=== PATIENT | female | born 1935 | race African-American/Black ===

== ENCOUNTER → 2016-07-16 | Outpatient (CLI) | payer MEDICARE, MEDICAID ==
[~2016-07-16] MED LIST: ASCO500C15 PO; AZOPT OP; BRIM.2 BOTHEYE; CHOL50006 PO; FAMO20TA8 PO; FERR-63 PO; FOLI1TAB63 PO; IPRA3AMP9 INH; SEVE800T8 PO; [UNRECOGNIZED DRUG - CODE] TOP
[2016-07-16 13:00] LABS: BASOPHILS % 0.8 % (0.0-2.0); HEMATOCRIT. 35.1 % (36.0-48.0); HEMOGLOBIN. 12.2 g/dL (12.0-16.0); LYMPHOCYTES % 31.9 % (20.0-50.0); MEAN CORPUSCULAR HEMOGLOBIN 28.4 pg (28.0-32.0); MEAN CORPUSCULAR HGB CONC 34.7 g/dL (31.0-37.0); MEAN CORPUSCULAR VOLUME 81.9 fL (81.0-99.0); MONOCYTES % 5.7 % (2.0-8.0); NEUTROPHILS % 57.6 % (40.0-76.0); PLATELET 246 x1000/uL (130-400); RED BLOOD CELL COUNT 4.29 mill/uL (4.2-5.4); RED CELL DISTRIBUTION WIDTH 14.3 % (11.6-14.6); WHITE BLOOD COUNT 10.4 x1000/uL (4.5-11.0)
[2016-07-16 13:21] LABS: ALANINE AMINOTRANSFERASE 16 IU/L (13-61); ALBUMIN 3.2 g/dL (3.4-5.0); ANION GAP 12; CALCIUM 8.9 mg/dL (8.5-10.1); CARBON DIOXIDE 26 mEq/L (21-32); CHLORIDE 108 mEq/L (98-107); HDL CHOLESTEROL 83 mg/dL (40-59); INDEX HEMOLYSI 1 (1-3); INDEX ICTERIC 1 (1-4); INDEX LIPEMIC 1 (1-3); TRIGLYCERIDE 214 mg/dL (0-150); UREA NITROGEN BLOOD 31 mg/dL (7-21); eGFR 35 mL/min (>60)
[2016-07-16 13:22] LABS: LDL CHOLESTEROL 227 mg/dL (5-100)
== END | disposition home or self-care (01) ==
LOC: LAB 12:27
PROVIDERS: ATTEND Internal Medicine Critical Care Medicine
DX: I12.0 Hypertensive chronic kidney disease with stage 5 chronic kidney disease or end stage renal disease (principal); N18.5 Chronic kidney disease, stage 5
CPT/HCPCS: 36415; 80053; 80061; 82306; 84443; 85025

== ENCOUNTER → 2016-12-13 | Outpatient (CLI) | payer MEDICARE, MEDICAID ==
[~2016-12-13] MED LIST changes: +DUONEB3 ML INH; -IPRA3AMP9 INH
[2016-12-13 16:38] LABS: BASOPHILS % 0.9 % (0.0-2.0); HEMOGLOBIN. 11.2 g/dL (12.0-16.0); LYMPHOCYTES % 35.4 % (20.0-50.0); MEAN CORPUSCULAR VOLUME 81.6 fL (81.0-99.0); MEAN PLATELET VOLUME 7.2 fl (7.4-10.4); MONOCYTES % 5.1 % (2.0-8.0); NEUTROPHILS % 54.6 % (40.0-76.0); PLATELET 243 x1000/uL (130-400); RED BLOOD CELL COUNT 4.17 mill/uL (4.2-5.4); RED CELL DISTRIBUTION WIDTH 14.4 % (11.6-14.6)
== END | disposition home or self-care (01) ==
LOC: LAB 15:53
PROVIDERS: ATTEND Internal Medicine Nephrology
DX: I12.9 Hypertensive chronic kidney disease with stage 1 through stage 4 chronic kidney disease, or unspecified chronic kidney disease (principal); N18.3 Chronic kidney disease, stage 3 (moderate)
CPT/HCPCS: 36415; 80048; 85025

== ENCOUNTER → 2017-03-28 | Outpatient (CLI) | payer MEDICARE, MEDICAID ==
[2017-03-28 13:11] LABS: EOSINOPHILS % 3.4 % (0.0-5.0); HEMATOCRIT. 32.5 % (36.0-48.0); HEMOGLOBIN. 10.8 g/dL (12.0-16.0); LYMPHOCYTES % 33.8 % (20.0-50.0); MEAN CORPUSCULAR HEMOGLOBIN 26.8 pg (28.0-32.0); MEAN CORPUSCULAR VOLUME 81.2 fL (81.0-99.0); MEAN PLATELET VOLUME 6.7 fl (7.4-10.4); MONOCYTES % 6.3 % (2.0-8.0); NEUTROPHILS % 55.5 % (40.0-76.0); PLATELET 246 x1000/uL (130-400); RED BLOOD CELL COUNT 4.01 mill/uL (4.2-5.4); RED CELL DISTRIBUTION WIDTH 14.7 % (11.6-14.6)
[2017-03-28 13:34] LABS: CLARITY URINE CLEAR (CLEAR); COLOR URINE YELLOW (YELLOW); KETONES URINE NEGATIVE (NEGATIVE); LEUKOCYTE ESTERASE URINE 2+ (NEGATIVE); NITRITE URINE NEGATIVE (NEGATIVE); OCCULT BLOOD URINE NEGATIVE (NEGATIVE); PH URINE 5.5 (4.5-8.0); PROTEIN URINE TRACE (NEGATIVE); SPECIFIC GRAVITY URINE 1.009 (1.005-1.030); UROBILINOGEN URINE 0.2 E.U./dL (0.2-1.0)
[2017-03-28 13:59] LABS: CHLORIDE 107 mEq/L (98-107)
== END | disposition home or self-care (01) ==
LOC: LAB 12:37
PROVIDERS: ATTEND Internal Medicine Nephrology
DX: N18.3 Chronic kidney disease, stage 3 (moderate) (principal)
CPT/HCPCS: 36415; 80053; 81001; 83036; 85025; 87077; 87086; 87186

== ENCOUNTER 2018-08-19 15:23 | Emergency (ER) | payer MEDICARE, MEDICAID ==
[~2018-08-19] VITALS: Ht 165.1 cm; Wt 113.0 kg
[2018-08-19] MEDS ORDERED: KETOROLAC 30MG/ML VIAL IV STA (16:11)
[2018-08-19 16:39] LABS: BASOPHILS % 1.1 % (0.0-2.0); EOSINOPHILS % 3.7 % (0.0-5.0); HEMATOCRIT. 31.3 % (36.0-48.0); HEMOGLOBIN. 10.6 g/dL (12.0-16.0); LYMPHOCYTES % 40.4 % (20.0-50.0); MEAN CORPUSCULAR HEMOGLOBIN 28.4 pg (28.0-32.0); MEAN CORPUSCULAR VOLUME 83.4 fL (81.0-99.0); MEAN PLATELET VOLUME 6.9 fl (7.4-10.4); MONOCYTES % 6.1 % (2.0-8.0); NEUTROPHILS % 48.7 % (40.0-76.0); PLATELET 211 x1000/uL (130-400); RED BLOOD CELL COUNT 3.75 mill/uL (4.2-5.4); RED CELL DISTRIBUTION WIDTH 15.3 % (11.6-14.6)
[2018-08-19 16:46] LABS: PROTHROMBIN TIME 9.9 sec (9.6-11.0)
[2018-08-19 16:49] LABS: CHLORIDE 109 mEq/L (98-107)
[2018-08-19 18:57] VITALS: BP 138/65
== END 2018-08-19 19:02 | disposition home or self-care (01) ==
LOC: ER 15:23
DX: M79.18 Myalgia, other site (principal); K43.9 Ventral hernia without obstruction or gangrene; M79.605 Pain in left leg; I11.9 Hypertensive heart disease without heart failure; Z89.511 Acquired absence of right leg below knee; Z79.899 Other long term (current) drug therapy; Z91.041 Radiographic dye allergy status
CPT/HCPCS: 36415; 73590; 74176; 80053; 83690; 85025; 85610; 93005; 93971; 96374; 99284; J1885

== ENCOUNTER 2019-02-17 23:58 | Inpatient (IN) | payer MEDICARE, MEDICAID ==
[~2019-02-17] VITALS: Ht 165.1 cm; Wt 96.3 kg
[2019-02-17 23:58] VITALS: BP 171/79
[~2019-02-17 23:58] MED LIST changes: +AMLO5TAB88 PO; +BENA10TA12 PO; +CARV3.1242 MT; +CITR15SO2 PO; -DUONEB3 ML INH; +FERR325T6 MT; +FOLI1TAB63 MT; +FURO-152 PO; +SEVE800T8 MT
[2019-02-18] VITALS: BP 171/74
[2019-02-18] MEDS ORDERED: LACTULOSE 20G/30ML UDC PO PRN (01:00)
[2019-02-18] MEDS ORDERED: GUAIFENESIN 200MG/10ML SUGAR FREE UDC PO PRN (01:00)
[2019-02-18] MEDS ORDERED: ONDANSETRON HCL 4MG/2ML INJ IV PRN (01:00)
[2019-02-18] MEDS ORDERED: CLONIDINE 0.1MG TABLET PO PRN (01:00)
[2019-02-18] MEDS: ACETAMINOPHEN 325MG TABLET PO PRN (01:58)
[2019-02-18] MEDS ORDERED: SODIUM CHLORIDE 0.9% 1,000 ML IV SCH (02:00)
[2019-02-18] MEDS ORDERED: MEROPENEM 500 MG in SODIUM CHLORIDE 0.9% 50 ML IV SCH (03:00)
[2019-02-18] MEDS: IPRATROPIUM/ALBUTEROL 0.5-3(2.5)MG/3ML NEB HHN SCH ×6 (03:28→20:00)
[2019-02-18 08:00] VITALS: BP 114/45
[2019-02-18] MEDS: FAMOTIDINE 20MG TABLET PO SCH (08:40)
[2019-02-18] MEDS: SEVELAMER CARBONATE 800 MG TABLET PO SCH ×3 (08:41→19:05)
[2019-02-18] MEDS: FERROUS SULFATE 325MG TABLET PO SCH ×2 (08:41→19:05)
[2019-02-18] MEDS: DOCUSATE SODIUM 250MG CAPSULE PO SCH (08:41)
[2019-02-18] MEDS: FOLIC ACID/VITAMIN B COMP W-C TABLET PO SCH (08:41)
[2019-02-18] MEDS: CITALOPRAM HYDROBROMIDE 10MG TABLET PO SCH (08:41)
[2019-02-18] MEDS: AMLODIPINE 5MG TABLET PO SCH ×2 (08:42→22:18)
[2019-02-18] MEDS: ENOXAPARIN 30MG/0.3ML SYR SUBCUT SCH (08:42)
[2019-02-18] MEDS: BRIMONIDINE 0.2% OPHTH DROPS 5ML BOTHEYE SCH ×2 (08:44→19:05)
[2019-02-18] MEDS ORDERED: BENAZEPRIL 10MG TABLET PO SCH (09:00)
[2019-02-18] MEDS ORDERED: FUROSEMIDE 20MG/2ML VIAL IVP SCH (09:00)
[2019-02-18] MEDS: BENAZEPRIL 10MG TABLET PO SCH (09:00)
[2019-02-18 12:51] LABS: BASOPHILS % 1.4 % (0.0-2.0); HEMATOCRIT. 30.9 % (36.0-48.0); HEMOGLOBIN. 10.2 g/dL (12.0-16.0); LYMPHOCYTES % 21.6 % (20.0-50.0); MEAN CORPUSCULAR HEMOGLOBIN 27.5 pg (28.0-32.0); MEAN CORPUSCULAR VOLUME 83.5 fL (81.0-99.0); MEAN PLATELET VOLUME 6.5 fl (7.4-10.4); MONOCYTES % 9.6 % (2.0-8.0); NEUTROPHILS % 64.4 % (40.0-76.0); PLATELET 272 x1000/uL (130-400); RED CELL DISTRIBUTION WIDTH 14.8 % (11.6-14.6)
[2019-02-18 20:00] VITALS: BP 148/57
[2019-02-18] MEDS: MEROPENEM 500 MG in SODIUM CHLORIDE 0.9% 50 ML IV SCH (21:53)
[2019-02-19] MEDS: IPRATROPIUM/ALBUTEROL 0.5-3(2.5)MG/3ML NEB HHN SCH ×6 (00:50→20:09)
[2019-02-19 08:00] VITALS: BP 143/62
[2019-02-19 08:01] LABS: BASOPHILS % 0.6 % (0.0-2.0); EOSINOPHILS % 3.7 % (0.0-5.0); HEMATOCRIT. 28.5 % (36.0-48.0); HEMOGLOBIN. 9.3 g/dL (12.0-16.0); LYMPHOCYTES % 28.6 % (20.0-50.0); MEAN CORPUSCULAR HEMOGLOBIN 27.4 pg (28.0-32.0); MEAN CORPUSCULAR VOLUME 83.7 fL (81.0-99.0); MEAN PLATELET VOLUME 6.5 fl (7.4-10.4); NEUTROPHILS % 56.1 % (40.0-76.0); PLATELET 262 x1000/uL (130-400); RED BLOOD CELL COUNT 3.41 mill/uL (4.2-5.4); RED CELL DISTRIBUTION WIDTH 14.5 % (11.6-14.6)
[2019-02-19] MEDS: BENAZEPRIL 10MG TABLET PO SCH (09:00)
[2019-02-19] MEDS: FERROUS SULFATE 325MG TABLET PO SCH ×2 (09:41→16:40)
[2019-02-19] MEDS: AMLODIPINE 5MG TABLET PO SCH ×2 (09:42→22:48)
[2019-02-19] MEDS: CITALOPRAM HYDROBROMIDE 10MG TABLET PO SCH (09:42)
[2019-02-19] MEDS: FAMOTIDINE 20MG TABLET PO SCH (09:43)
[2019-02-19] MEDS: FOLIC ACID/VITAMIN B COMP W-C TABLET PO SCH (09:43)
[2019-02-19] MEDS: ENOXAPARIN 30MG/0.3ML SYR SUBCUT SCH (09:43)
[2019-02-19] MEDS: SEVELAMER CARBONATE 800 MG TABLET PO SCH ×3 (09:43→16:40)
[2019-02-19] MEDS: DOCUSATE SODIUM 250MG CAPSULE PO SCH (09:43)
[2019-02-19] MEDS: BRIMONIDINE 0.2% OPHTH DROPS 5ML BOTHEYE SCH ×2 (09:44→16:41)
[2019-02-19] MEDS: ACETAMINOPHEN 325MG TABLET PO PRN (16:41)
[2019-02-19 20:00] VITALS: BP 171/78
[2019-02-20] MEDS: IPRATROPIUM/ALBUTEROL 0.5-3(2.5)MG/3ML NEB HHN SCH ×5 (00:09→22:23)
[2019-02-20 08:20] VITALS: BP 136/60
[2019-02-20] MEDS: CITALOPRAM HYDROBROMIDE 10MG TABLET PO SCH (08:40)
[2019-02-20] MEDS: BENAZEPRIL 10MG TABLET PO SCH ×2 (08:41→21:01)
[2019-02-20] MEDS: FOLIC ACID/VITAMIN B COMP W-C TABLET PO SCH (08:41)
[2019-02-20] MEDS: FERROUS SULFATE 325MG TABLET PO SCH ×2 (08:41→17:30)
[2019-02-20] MEDS: FAMOTIDINE 20MG TABLET PO SCH (08:41)
[2019-02-20] MEDS: DOCUSATE SODIUM 250MG CAPSULE PO SCH (08:41)
[2019-02-20] MEDS: SEVELAMER CARBONATE 800 MG TABLET PO SCH ×3 (08:41→17:30)
[2019-02-20] MEDS: ENOXAPARIN 30MG/0.3ML SYR SUBCUT SCH (08:42)
[2019-02-20] MEDS: AMLODIPINE 5MG TABLET PO SCH ×2 (08:42→21:00)
[2019-02-20] MEDS: BRIMONIDINE 0.2% OPHTH DROPS 5ML BOTHEYE SCH ×2 (08:42→17:30)
[2019-02-20] MEDS ORDERED: BENZONATATE 100MG CAPSULE PO PRN (09:30)
[2019-02-20] MEDS: ONDANSETRON HCL 4MG TABLET PO PRN (18:07)
[2019-02-20 20:00] VITALS: BP 127/57
[2019-02-20] MEDS: MEROPENEM 500 MG in SODIUM CHLORIDE 0.9% 50 ML IV SCH (23:02)
[2019-02-20] MEDS: LORAZEPAM 2MG/ML CPJ IV PRN (23:27)
[2019-02-21] MEDS: IPRATROPIUM/ALBUTEROL 0.5-3(2.5)MG/3ML NEB HHN SCH ×5 (00:34→20:59)
[2019-02-21 06:43] LABS: BASOPHILS % 1.1 % (0.0-2.0); EOSINOPHILS % 4.9 % (0.0-5.0); HEMATOCRIT. 27.2 % (36.0-48.0); HEMOGLOBIN. 9.1 g/dL (12.0-16.0); LYMPHOCYTES % 29.9 % (20.0-50.0); MEAN CORPUSCULAR HEMOGLOBIN 27.6 pg (28.0-32.0); MEAN CORPUSCULAR VOLUME 82.7 fL (81.0-99.0); MEAN PLATELET VOLUME 6.8 fl (7.4-10.4); MONOCYTES % 10.2 % (2.0-8.0); NEUTROPHILS % 53.9 % (40.0-76.0); PLATELET 198 x1000/uL (130-400); RED BLOOD CELL COUNT 3.29 mill/uL (4.2-5.4); RED CELL DISTRIBUTION WIDTH 14.5 % (11.6-14.6)
[2019-02-21 08:10] VITALS: BP 145/51
[2019-02-21] MEDS: AMLODIPINE 5MG TABLET PO SCH ×2 (08:50→20:50)
[2019-02-21] MEDS: FOLIC ACID/VITAMIN B COMP W-C TABLET PO SCH (08:50)
[2019-02-21] MEDS: FERROUS SULFATE 325MG TABLET PO SCH ×2 (08:50→16:10)
[2019-02-21] MEDS: SEVELAMER CARBONATE 800 MG TABLET PO SCH ×3 (08:50→16:10)
[2019-02-21] MEDS: BENAZEPRIL 10MG TABLET PO SCH ×2 (08:50→20:50)
[2019-02-21] MEDS: DOCUSATE SODIUM 250MG CAPSULE PO SCH (08:50)
[2019-02-21] MEDS: FAMOTIDINE 20MG TABLET PO SCH (08:50)
[2019-02-21] MEDS: CITALOPRAM HYDROBROMIDE 10MG TABLET PO SCH (08:51)
[2019-02-21] MEDS: ENOXAPARIN 30MG/0.3ML SYR SUBCUT SCH (08:56)
[2019-02-21] MEDS: BRIMONIDINE 0.2% OPHTH DROPS 5ML BOTHEYE SCH ×2 (08:58→16:11)
[2019-02-21 20:00] VITALS: BP 156/54
[2019-02-21] MEDS: MEROPENEM 500 MG in SODIUM CHLORIDE 0.9% 50 ML IV SCH (20:49)
[2019-02-22] MEDS: IPRATROPIUM/ALBUTEROL 0.5-3(2.5)MG/3ML NEB HHN SCH ×6 (01:10→21:14)
[2019-02-22 08:00] VITALS: BP 136/41
[2019-02-22] MEDS: FOLIC ACID/VITAMIN B COMP W-C TABLET PO SCH (08:31)
[2019-02-22] MEDS: SEVELAMER CARBONATE 800 MG TABLET PO SCH ×3 (08:31→16:06)
[2019-02-22] MEDS: CITALOPRAM HYDROBROMIDE 10MG TABLET PO SCH (08:31)
[2019-02-22] MEDS: DOCUSATE SODIUM 250MG CAPSULE PO SCH (08:31)
[2019-02-22] MEDS: AMLODIPINE 5MG TABLET PO SCH ×2 (08:31→21:51)
[2019-02-22] MEDS: FAMOTIDINE 20MG TABLET PO SCH (08:31)
[2019-02-22] MEDS: BRIMONIDINE 0.2% OPHTH DROPS 5ML BOTHEYE SCH ×2 (08:32→16:12)
[2019-02-22] MEDS: FERROUS SULFATE 325MG TABLET PO SCH ×2 (08:32→16:07)
[2019-02-22] MEDS: BENAZEPRIL 10MG TABLET PO SCH ×2 (08:32→21:52)
[2019-02-22] MEDS: ENOXAPARIN 30MG/0.3ML SYR SUBCUT SCH (08:33)
[2019-02-22 20:00] VITALS: BP 140/59
[2019-02-22] MEDS: MEROPENEM 500 MG in SODIUM CHLORIDE 0.9% 50 ML IV SCH (21:50)
[2019-02-22] MEDS: LORAZEPAM 2MG/ML CPJ IV PRN (23:57)
[2019-02-23] MEDS: IPRATROPIUM/ALBUTEROL 0.5-3(2.5)MG/3ML NEB HHN SCH ×6 (01:08→23:42)
[2019-02-23 07:47] LABS: BASOPHILS % 1.1 % (0.0-2.0); EOSINOPHILS % 3.3 % (0.0-5.0); HEMATOCRIT. 28.6 % (36.0-48.0); HEMOGLOBIN. 9.7 g/dL (12.0-16.0); LYMPHOCYTES % 23.3 % (20.0-50.0); MEAN CORPUSCULAR HEMOGLOBIN 28.1 pg (28.0-32.0); MEAN CORPUSCULAR VOLUME 83.2 fL (81.0-99.0); MEAN PLATELET VOLUME 7.2 fl (7.4-10.4); MONOCYTES % 10.4 % (2.0-8.0); NEUTROPHILS % 61.9 % (40.0-76.0); PLATELET 230 x1000/uL (130-400); RED BLOOD CELL COUNT 3.44 mill/uL (4.2-5.4); RED CELL DISTRIBUTION WIDTH 14.4 % (11.6-14.6)
[2019-02-23 08:12] VITALS: BP 143/56
[2019-02-23] MEDS: BENAZEPRIL 10MG TABLET PO SCH ×2 (09:01→21:00)
[2019-02-23] MEDS: CITALOPRAM HYDROBROMIDE 10MG TABLET PO SCH (09:01)
[2019-02-23] MEDS: DOCUSATE SODIUM 250MG CAPSULE PO SCH (09:01)
[2019-02-23] MEDS: SEVELAMER CARBONATE 800 MG TABLET PO SCH ×3 (09:01→16:21)
[2019-02-23] MEDS: AMLODIPINE 5MG TABLET PO SCH ×2 (09:01→21:10)
[2019-02-23] MEDS: FERROUS SULFATE 325MG TABLET PO SCH ×2 (09:01→16:21)
[2019-02-23] MEDS: BRIMONIDINE 0.2% OPHTH DROPS 5ML BOTHEYE SCH ×2 (09:02→16:21)
[2019-02-23] MEDS: FAMOTIDINE 20MG TABLET PO SCH (09:02)
[2019-02-23] MEDS: FOLIC ACID/VITAMIN B COMP W-C TABLET PO SCH (09:02)
[2019-02-23] MEDS: ENOXAPARIN 30MG/0.3ML SYR SUBCUT SCH (10:23)
[2019-02-23] MEDS: ONDANSETRON HCL 4MG TABLET PO PRN (10:52)
[2019-02-23] MEDS: POLYVINYL ALCOHOL OPHTH DROPS 15ML BOTHEYE SCH ×2 (12:13→17:07)
[2019-02-23] MEDS ORDERED: MIDAZOLAM HCL 2 MG/2 ML VIAL ONE (14:53)
[2019-02-23] MEDS ORDERED: PROPOFOL 200MG/20ML VIAL IV ONE (14:53)
[2019-02-23] MEDS ORDERED: FENTANYL CITRATE/PF 50MCG/ML 2ML VIAL ONE (14:53)
[2019-02-23] MEDS ORDERED: DEXAMETHASONE 4MG/ML 1ML VIAL ONE (15:06)
[2019-02-23] MEDS ORDERED: ONDANSETRON HCL 4MG/2ML INJ ONE (15:06)
[2019-02-23] MEDS ORDERED: ROCURONIUM BROMIDE 10MG/ML VIAL 5ML IV ONE ×2 (15:07→17:06)
[2019-02-23 20:00] VITALS: BP 114/65
[2019-02-23] MEDS: EPOETIN ALFA 4000UNITS/ML VIAL SUBCUT SCH (21:00)
[2019-02-23] MEDS: MEROPENEM 500 MG in SODIUM CHLORIDE 0.9% 50 ML IV SCH (21:09)
[2019-02-24] MEDS: BRIMONIDINE 0.2% OPHTH DROPS 5ML BOTHEYE SCH ×3 (01:00→16:31)
[2019-02-24] MEDS: POLYVINYL ALCOHOL OPHTH DROPS 15ML BOTHEYE SCH ×3 (01:02→16:31)
[2019-02-24 08:00] VITALS: BP 128/52
[2019-02-24] MEDS: DOCUSATE SODIUM 250MG CAPSULE PO SCH (08:49)
[2019-02-24] MEDS: AMLODIPINE 5MG TABLET PO SCH ×2 (08:49→21:07)
[2019-02-24] MEDS: FAMOTIDINE 20MG TABLET PO SCH (08:50)
[2019-02-24] MEDS: CITALOPRAM HYDROBROMIDE 10MG TABLET PO SCH (08:50)
[2019-02-24] MEDS: BENAZEPRIL 10MG TABLET PO SCH ×2 (08:50→21:07)
[2019-02-24] MEDS: ENOXAPARIN 30MG/0.3ML SYR SUBCUT SCH (08:50)
[2019-02-24] MEDS: FOLIC ACID/VITAMIN B COMP W-C TABLET PO SCH (08:50)
[2019-02-24] MEDS: SEVELAMER CARBONATE 800 MG TABLET PO SCH ×3 (08:50→16:28)
[2019-02-24] MEDS: FERROUS SULFATE 325MG TABLET PO SCH ×2 (08:50→16:28)
[2019-02-24] MEDS: FUROSEMIDE 40MG TABLET PO SCH (08:53)
[2019-02-24] MEDS: IPRATROPIUM/ALBUTEROL 0.5-3(2.5)MG/3ML NEB HHN SCH ×5 (09:15→23:50)
[2019-02-24 09:28] LABS: CHLORIDE 110 mEq/L (98-107)
[2019-02-24 11:21] LABS: BASOPHILS % 0.7 % (0.0-2.0); EOSINOPHILS % 3.2 % (0.0-5.0); HEMATOCRIT. 26.8 % (36.0-48.0); HEMOGLOBIN. 8.9 g/dL (12.0-16.0); LYMPHOCYTES % 25.3 % (20.0-50.0); MEAN CORPUSCULAR HEMOGLOBIN 27.6 pg (28.0-32.0); MEAN CORPUSCULAR VOLUME 83.6 fL (81.0-99.0); MEAN PLATELET VOLUME 7.6 fl (7.4-10.4); MONOCYTES % 9.2 % (2.0-8.0); NEUTROPHILS % 61.6 % (40.0-76.0); PLATELET 247 x1000/uL (130-400); RED BLOOD CELL COUNT 3.21 mill/uL (4.2-5.4); RED CELL DISTRIBUTION WIDTH 14.4 % (11.6-14.6)
[2019-02-24 20:00] VITALS: BP 130/50
[2019-02-25] MEDS: IPRATROPIUM/ALBUTEROL 0.5-3(2.5)MG/3ML NEB HHN SCH ×5 (04:00→21:21)
[2019-02-25] MEDS: POLYVINYL ALCOHOL OPHTH DROPS 15ML BOTHEYE SCH ×4 (05:47→17:19)
[2019-02-25 06:45] LABS: BASOPHILS % 1.3 % (0.0-2.0); EOSINOPHILS % 3.9 % (0.0-5.0); HEMOGLOBIN. 9.5 g/dL (12.0-16.0); LYMPHOCYTES % 25.3 % (20.0-50.0); MEAN CORPUSCULAR HEMOGLOBIN 27.8 pg (28.0-32.0); MEAN CORPUSCULAR VOLUME 82.4 fL (81.0-99.0); MEAN PLATELET VOLUME 7.6 fl (7.4-10.4); MONOCYTES % 9.3 % (2.0-8.0); NEUTROPHILS % 60.2 % (40.0-76.0); PLATELET 261 x1000/uL (130-400); RED CELL DISTRIBUTION WIDTH 14.6 % (11.6-14.6)
[2019-02-25 07:58] VITALS: BP 154/58
[2019-02-25] MEDS: FERROUS SULFATE 325MG TABLET PO SCH ×2 (09:50→17:18)
[2019-02-25] MEDS: BRIMONIDINE 0.2% OPHTH DROPS 5ML BOTHEYE SCH ×2 (09:50→17:19)
[2019-02-25] MEDS: BENAZEPRIL 10MG TABLET PO SCH ×2 (09:50→21:38)
[2019-02-25] MEDS: CITALOPRAM HYDROBROMIDE 10MG TABLET PO SCH (09:50)
[2019-02-25] MEDS: SEVELAMER CARBONATE 800 MG TABLET PO SCH ×3 (09:50→17:18)
[2019-02-25] MEDS: FUROSEMIDE 40MG TABLET PO SCH (09:50)
[2019-02-25] MEDS: FOLIC ACID/VITAMIN B COMP W-C TABLET PO SCH (09:50)
[2019-02-25] MEDS: AMLODIPINE 5MG TABLET PO SCH ×2 (09:50→21:38)
[2019-02-25] MEDS: ENOXAPARIN 30MG/0.3ML SYR SUBCUT SCH (09:50)
[2019-02-25] MEDS: DOCUSATE SODIUM 250MG CAPSULE PO SCH (09:50)
[2019-02-25] MEDS: FAMOTIDINE 40MG TABLET PO SCH (12:12)
[2019-02-25 20:00] VITALS: BP 152/64
[2019-02-25] MEDS: EPOETIN ALFA 4000UNITS/ML VIAL SUBCUT SCH (21:39)
[2019-02-26] MEDS: POLYVINYL ALCOHOL OPHTH DROPS 15ML BOTHEYE SCH ×5 (00:50→23:03)
[2019-02-26] MEDS: IPRATROPIUM/ALBUTEROL 0.5-3(2.5)MG/3ML NEB HHN SCH ×5 (04:45→21:06)
[2019-02-26 08:12] VITALS: BP 121/56
[2019-02-26] MEDS: BRIMONIDINE 0.2% OPHTH DROPS 5ML BOTHEYE SCH ×2 (09:41→16:38)
[2019-02-26] MEDS: DOCUSATE SODIUM 250MG CAPSULE PO SCH (09:42)
[2019-02-26] MEDS: CITALOPRAM HYDROBROMIDE 10MG TABLET PO SCH (09:42)
[2019-02-26] MEDS: BENAZEPRIL 10MG TABLET PO SCH ×2 (09:43→20:24)
[2019-02-26] MEDS: ENOXAPARIN 30MG/0.3ML SYR SUBCUT SCH (09:43)
[2019-02-26] MEDS: FAMOTIDINE 40MG TABLET PO SCH (09:43)
[2019-02-26] MEDS: AMLODIPINE 5MG TABLET PO SCH ×2 (09:43→20:24)
[2019-02-26] MEDS: FERROUS SULFATE 325MG TABLET PO SCH ×2 (09:43→16:38)
[2019-02-26] MEDS: FOLIC ACID/VITAMIN B COMP W-C TABLET PO SCH (09:43)
[2019-02-26] MEDS: SEVELAMER CARBONATE 800 MG TABLET PO SCH ×3 (09:43→16:38)
[2019-02-26] MEDS: FUROSEMIDE 40MG TABLET PO SCH (09:43)
[2019-02-26 15:58] LABS: EOSINOPHILS % 2.7 % (0.0-5.0); HEMATOCRIT. 29.7 % (36.0-48.0); HEMOGLOBIN. 9.7 g/dL (12.0-16.0); MEAN CORPUSCULAR HEMOGLOBIN 27.2 pg (28.0-32.0); MEAN CORPUSCULAR VOLUME 82.9 fL (81.0-99.0); MEAN PLATELET VOLUME 7.4 fl (7.4-10.4); MONOCYTES % 7.6 % (2.0-8.0); NEUTROPHILS % 64.7 % (40.0-76.0); PLATELET 260 x1000/uL (130-400); RED BLOOD CELL COUNT 3.58 mill/uL (4.2-5.4); RED CELL DISTRIBUTION WIDTH 14.8 % (11.6-14.6)
[2019-02-26 20:00] VITALS: BP 157/63
[2019-02-26] MEDS: DIPHENHYDRAMINE 25MG CAPSULE PO PRN (23:50)
[2019-02-27] MEDS: IPRATROPIUM/ALBUTEROL 0.5-3(2.5)MG/3ML NEB HHN SCH ×3 (00:58→12:05)
[2019-02-27] MEDS: POLYVINYL ALCOHOL OPHTH DROPS 15ML BOTHEYE SCH ×3 (05:37→18:04)
[2019-02-27 08:23] VITALS: BP 135/79
[2019-02-27] MEDS: AMLODIPINE 5MG TABLET PO SCH ×2 (09:07→21:14)
[2019-02-27] MEDS: FUROSEMIDE 40MG TABLET PO SCH (09:08)
[2019-02-27] MEDS: CITALOPRAM HYDROBROMIDE 10MG TABLET PO SCH (09:10)
[2019-02-27] MEDS: FAMOTIDINE 40MG TABLET PO SCH (09:10)
[2019-02-27] MEDS: FERROUS SULFATE 325MG TABLET PO SCH ×2 (09:10→17:58)
[2019-02-27] MEDS: BENAZEPRIL 10MG TABLET PO SCH ×2 (09:12→21:14)
[2019-02-27] MEDS: SEVELAMER CARBONATE 800 MG TABLET PO SCH ×3 (09:13→17:57)
[2019-02-27] MEDS: DOCUSATE SODIUM 250MG CAPSULE PO SCH (09:13)
[2019-02-27] MEDS: FOLIC ACID/VITAMIN B COMP W-C TABLET PO SCH (09:14)
[2019-02-27] MEDS: BRIMONIDINE 0.2% OPHTH DROPS 5ML BOTHEYE SCH ×2 (09:15→18:03)
[2019-02-27] MEDS: ENOXAPARIN 30MG/0.3ML SYR SUBCUT SCH (09:15)
[2019-02-27] MEDS: DIPHENHYDRAMINE 25MG CAPSULE PO PRN (17:58)
[2019-02-27 20:00] VITALS: BP 142/49
[2019-02-27] MEDS: EPOETIN ALFA 4000UNITS/ML VIAL SUBCUT SCH (21:00)
[2019-02-28] MEDS: IPRATROPIUM/ALBUTEROL 0.5-3(2.5)MG/3ML NEB HHN SCH ×4 (04:00→13:10)
[2019-02-28] MEDS: POLYVINYL ALCOHOL OPHTH DROPS 15ML BOTHEYE SCH ×3 (05:53→11:44)
[2019-02-28 08:24] VITALS: BP 128/84
[2019-02-28] MEDS: SEVELAMER CARBONATE 800 MG TABLET PO SCH ×3 (09:13→16:50)
[2019-02-28] MEDS: BENAZEPRIL 10MG TABLET PO SCH (09:13)
[2019-02-28] MEDS: DOCUSATE SODIUM 250MG CAPSULE PO SCH (09:13)
[2019-02-28] MEDS: FUROSEMIDE 40MG TABLET PO SCH (09:13)
[2019-02-28] MEDS: FERROUS SULFATE 325MG TABLET PO SCH ×2 (09:13→16:50)
[2019-02-28] MEDS: CITALOPRAM HYDROBROMIDE 10MG TABLET PO SCH (09:13)
[2019-02-28] MEDS: BRIMONIDINE 0.2% OPHTH DROPS 5ML BOTHEYE SCH ×2 (09:14→16:50)
[2019-02-28] MEDS: FAMOTIDINE 40MG TABLET PO SCH (09:14)
[2019-02-28] MEDS: AMLODIPINE 5MG TABLET PO SCH (09:14)
[2019-02-28] MEDS: FOLIC ACID/VITAMIN B COMP W-C TABLET PO SCH (09:14)
[2019-02-28] MEDS: ENOXAPARIN 30MG/0.3ML SYR SUBCUT SCH (09:15)
[2019-02-28 10:18] VITALS: BP 146/45
[2019-03-01] MEDS ORDERED: FAMOTIDINE 20MG TABLET PO SCH (09:00)
== END 2019-02-28 17:50 | disposition home health service (06) | DRG 682 ==
PROVIDERS: ADMIT Psychiatry & Neurology Neurology; ATTEND Internal Medicine Geriatric Medicine
PROC: 5A1D70Z Performance of Urinary Filtration, Intermittent, Less than 6 Hours Per Day (ICD-10-PCS; principal; 2019-02-19)
PROC: 5A1D70Z Performance of Urinary Filtration, Intermittent, Less than 6 Hours Per Day (ICD-10-PCS; 2019-02-20)
DX: N17.0 Acute kidney failure with tubular necrosis (principal); G92 Toxic encephalopathy; I13.2 Hypertensive heart and chronic kidney disease with heart failure and with stage 5 chronic kidney disease, or end stage renal disease; E46 Unspecified protein-calorie malnutrition; N39.0 Urinary tract infection, site not specified; F33.1 Major depressive disorder, recurrent, moderate; J44.0 Chronic obstructive pulmonary disease with (acute) lower respiratory infection; N18.6 End stage renal disease; R11.2 Nausea with vomiting, unspecified; D63.1 Anemia in chronic kidney disease; H54.62 Unqualified visual loss, left eye, normal vision right eye; I95.9 Hypotension, unspecified; E87.5 Hyperkalemia; I73.9 Peripheral vascular disease, unspecified; Z96.641 Presence of right artificial hip joint; I50.9 Heart failure, unspecified; F06.8 Other specified mental disorders due to known physiological condition; F41.9 Anxiety disorder, unspecified; G62.9 Polyneuropathy, unspecified; M19.90 Unspecified osteoarthritis, unspecified site; Z89.611 Acquired absence of right leg above knee; Z99.2 Dependence on renal dialysis; Z99.3 Dependence on wheelchair; Z68.35 Body mass index [BMI] 35.0-35.9, adult; B96.1 Klebsiella pneumoniae [K. pneumoniae] as the cause of diseases classified elsewhere
CPT/HCPCS: 36415; 80048; 82962; 92523; 92610; 93970; 97110; 97116; 97150; 97162; 97167; 97530; 97535; C1893; J0885; J1100; J1650; J1940; J2060; J2185; J2250; J2405; J2704; J3010; J3490; J7620; Q0162; Q0163

== ENCOUNTER 2019-05-26 19:14 | Inpatient (IN) | payer MEDICARE, MEDICAID ==
[~2019-05-26] VITALS: Ht 152.4 cm; Wt 90.3 kg
[~2019-05-26 19:14] MED LIST changes: -AZOPT OP; -BENA10TA12 PO; +BENA10TA74 PO; -CHOL50006 PO; -SEVE800T8 PO; -[UNRECOGNIZED DRUG - CODE] TOP
[2019-05-26] MEDS ORDERED: ALBUTEROL 6.7GM HFA INHALER ORI ONE (20:30)
[2019-05-26 21:01] LABS: CHLORIDE 111 mEq/L (98-107)
[2019-05-26 21:05] LABS: EOSINOPHILS % 7.1 % (0.0-5.0); HEMATOCRIT. 33.1 % (36.0-48.0); HEMOGLOBIN. 10.9 g/dL (12.0-16.0); MEAN CORPUSCULAR HEMOGLOBIN 27.5 pg (28.0-32.0); MEAN CORPUSCULAR VOLUME 83.7 fL (81.0-99.0); MEAN PLATELET VOLUME 6.2 fl (7.4-10.4); MONOCYTES % 8.5 % (2.0-8.0); NEUTROPHILS % 54.4 % (40.0-76.0); PLATELET 244 x1000/uL (130-400); RED BLOOD CELL COUNT 3.95 mill/uL (4.2-5.4); RED CELL DISTRIBUTION WIDTH 16.3 % (11.6-14.6)
[2019-05-26 21:41] LABS: CLARITY URINE CLOUDY (CLEAR); COLOR URINE YELLOW (YELLOW); KETONES URINE NEGATIVE (NEGATIVE); LEUKOCYTE ESTERASE URINE 3+ (NEGATIVE); NITRITE URINE NEGATIVE (NEGATIVE); OCCULT BLOOD URINE TRACE (NEGATIVE); PH URINE 6.5 (4.5-8.0); PROTEIN URINE 2+ (NEGATIVE); SPECIFIC GRAVITY URINE 1.013 (1.005-1.030); UROBILINOGEN URINE 0.2 E.U./dL (0.2-1.0)
[2019-05-26] MEDS ORDERED: FUROSEMIDE 40MG/4ML VIAL IVP ONE (21:45)
[2019-05-27] MEDS ORDERED: MEROPENEM 1,000 MG in SODIUM CHLORIDE 0.9% 100 ML IV SCH ×2 (00:15→07:15)
[2019-05-27] MEDS ORDERED: FUROSEMIDE 40MG TABLET PO ONE (00:15)
[2019-05-27] MEDS ORDERED: FUROSEMIDE 40MG/4ML VIAL IVP ONE (02:15)
[2019-05-27] MEDS ORDERED: ONDANSETRON HCL 4MG/2ML INJ IV PRN (07:15)
[2019-05-27] MEDS ORDERED: ACETAMINOPHEN 325MG TABLET PO PRN (07:15)
[2019-05-27] MEDS ORDERED: IPRATROPIUM/ALBUTEROL 0.5-3(2.5)MG/3ML NEB HHN PRN (07:15)
[2019-05-27] MEDS: FUROSEMIDE 40MG/4ML VIAL IV SCH ×2 (09:00→17:37)
[2019-05-27 10:17] VITALS: BP 145/75
[2019-05-27 12:00] VITALS: BP 138/90
[2019-05-27 16:00] VITALS: BP 118/61
[2019-05-27 17:36] LABS: PHOSPHORUS 3.6 mg/dL (2.5-4.9)
[2019-05-27 20:00] VITALS: BP 159/64
[2019-05-27] MEDS: MEROPENEM 500MG in NORMAL SALINE 50ML IV SCH (21:19)
[2019-05-28 00:40] VITALS: BP 143/66
[2019-05-28 04:00] VITALS: BP 160/61
[2019-05-28] MEDS: CLONIDINE 0.1MG TABLET PO PRN (05:11)
[2019-05-28] MEDS ORDERED: THROMBIN (BOVINE) 5000 UNITS/VIAL TOP ONE (07:02)
[2019-05-28] MEDS ORDERED: LIDOCAINE HCL 1% 20ML VIAL (Pyxis) INJ ONE ×2 (07:02→11:40)
[2019-05-28] MEDS ORDERED: BACITRACIN 15GM TUBE TOP ONE (07:02)
[2019-05-28] MEDS ORDERED: HEPARIN SODIUM 1,000 UNIT/1ML VIAL IV ONE (07:03)
[2019-05-28] MEDS ORDERED: BACITRACIN 50,000 UNITS/VIAL ONE (07:03)
[2019-05-28] MEDS ORDERED: BUPIVACAINE HCL/PF 0.5% (5MG/ML) 10ML ONE (07:03)
[2019-05-28] MEDS ORDERED: NORMAL SALINE 0.9% 10 ML SYR ONE (07:03)
[2019-05-28 08:00] VITALS: BP 152/64
[2019-05-28 09:10] LABS: BASOPHILS % 0.9 % (0.0-2.0); EOSINOPHILS % 5.7 % (0.0-5.0); HEMOGLOBIN. 11.1 g/dL (12.0-16.0); LYMPHOCYTES % 41.3 % (20.0-50.0); MEAN CORPUSCULAR HEMOGLOBIN 27.6 pg (28.0-32.0); MEAN CORPUSCULAR VOLUME 84.4 fL (81.0-99.0); MEAN PLATELET VOLUME 6.1 fl (7.4-10.4); NEUTROPHILS % 45.1 % (40.0-76.0); PLATELET 211 x1000/uL (130-400); RED BLOOD CELL COUNT 4.03 mill/uL (4.2-5.4); RED CELL DISTRIBUTION WIDTH 16.4 % (11.6-14.6)
[2019-05-28 09:21] LABS: CHLORIDE 113 mEq/L (98-107)
[2019-05-28 09:31] LABS: LDL CHOLESTEROL 53 mg/dL (5-100)
[2019-05-28 09:33] LABS: HDL CHOLESTEROL 72 mg/dL (40-59)
[2019-05-28] MEDS: FUROSEMIDE 40MG/4ML VIAL IV SCH (10:58)
[2019-05-28] MEDS ORDERED: PROPOFOL 200MG/20ML VIAL IV ONE (11:40)
[2019-05-28 12:00] VITALS: BP 160/62
[2019-05-28] MEDS ORDERED: EPHEDRINE SULFATE 50MG/ML VIAL ONE (12:51)
[2019-05-28] MEDS ORDERED: HEPARIN 1000 UNITS/ML 10ML ONE (12:54)
[2019-05-28] MEDS ORDERED: ONDANSETRON HCL 4MG/2ML INJ ONE (13:32)
[2019-05-28] MEDS ORDERED: ONDANSETRON HCL 4MG/2ML INJ IV PRN (14:00)
[2019-05-28] MEDS ORDERED: HYDRALAZINE 20MG/ML VIAL IV PRN (14:00)
[2019-05-28] MEDS ORDERED: HYDROMORPHONE HCL/PF 2MG/ML CPJ IV PRN (14:00)
[2019-05-28] MEDS ORDERED: MORPHINE SULFATE 2 MG/ML CPJ (NOT FOR IM USE) IV PRN (14:45)
[2019-05-28 16:00] VITALS: BP 141/61
[2019-05-28] MEDS: BENAZEPRIL 10MG TABLET PO SCH ×2 (16:31→20:37)
[2019-05-28 20:37] VITALS: BP 139/65
[2019-05-28] MEDS: MEROPENEM 500MG in NORMAL SALINE 50ML IV SCH (20:37)
[2019-05-29 00:24] VITALS: BP 134/62
[2019-05-29 04:00] VITALS: BP 129/56
[2019-05-29 06:40] LABS: BASOPHILS % 0.6 % (0.0-2.0); EOSINOPHILS % 4.4 % (0.0-5.0); HEMATOCRIT. 30.4 % (36.0-48.0); HEMOGLOBIN. 9.7 g/dL (12.0-16.0); LYMPHOCYTES % 36.8 % (20.0-50.0); MEAN CORPUSCULAR HEMOGLOBIN 27.2 pg (28.0-32.0); MEAN CORPUSCULAR VOLUME 84.9 fL (81.0-99.0); MEAN PLATELET VOLUME 6.3 fl (7.4-10.4); MONOCYTES % 7.1 % (2.0-8.0); NEUTROPHILS % 51.1 % (40.0-76.0); PLATELET 176 x1000/uL (130-400); RED BLOOD CELL COUNT 3.58 mill/uL (4.2-5.4); RED CELL DISTRIBUTION WIDTH 16.6 % (11.6-14.6)
[2019-05-29 08:00] VITALS: BP 166/65
[2019-05-29] MEDS: FUROSEMIDE 40MG/4ML VIAL IV SCH (08:54)
[2019-05-29] MEDS: BENAZEPRIL 10MG TABLET PO SCH ×2 (09:10→21:37)
[2019-05-29 12:00] VITALS: BP 149/46
[2019-05-29] MEDS: DIPHENHYDRAMINE 50MG/ML VIAL IV PRN (14:20)
[2019-05-29 16:00] VITALS: BP 145/47
[2019-05-29 20:00] VITALS: BP 142/69
[2019-05-29] MEDS: MEROPENEM 500MG in NORMAL SALINE 50ML IV SCH (21:36)
[2019-05-30] VITALS: BP 140/70
[2019-05-30 04:00] VITALS: BP 144/55
[2019-05-30 08:00] VITALS: BP 168/65
[2019-05-30] MEDS: DIPHENHYDRAMINE 50MG/ML VIAL IV PRN ×2 (08:36→16:19)
[2019-05-30] MEDS: FUROSEMIDE 40MG/4ML VIAL IV SCH (08:36)
[2019-05-30] MEDS: CLONIDINE 0.1MG TABLET PO PRN ×2 (08:36→16:24)
[2019-05-30] MEDS: BENAZEPRIL 10MG TABLET PO SCH ×2 (08:36→20:57)
[2019-05-30 08:47] LABS: BASOPHILS % 0.6 % (0.0-2.0); EOSINOPHILS % 5.4 % (0.0-5.0); HEMATOCRIT. 31.3 % (36.0-48.0); HEMOGLOBIN. 10.2 g/dL (12.0-16.0); LYMPHOCYTES % 34.2 % (20.0-50.0); MEAN CORPUSCULAR HEMOGLOBIN 27.3 pg (28.0-32.0); MEAN CORPUSCULAR VOLUME 83.4 fL (81.0-99.0); MEAN PLATELET VOLUME 6.3 fl (7.4-10.4); NEUTROPHILS % 51.8 % (40.0-76.0); PLATELET 169 x1000/uL (130-400); RED BLOOD CELL COUNT 3.75 mill/uL (4.2-5.4); RED CELL DISTRIBUTION WIDTH 16.5 % (11.6-14.6)
[2019-05-30 12:00] VITALS: BP 145/66
[2019-05-30 16:00] VITALS: BP 160/62
[2019-05-30 20:38] VITALS: BP 166/58
[2019-05-30] MEDS: MEROPENEM 500MG in NORMAL SALINE 50ML IV SCH (20:57)
[2019-05-31 00:24] VITALS: BP 148/62
[2019-05-31] MEDS: DIPHENHYDRAMINE 50MG/ML VIAL IV PRN ×3 (02:26→18:36)
[2019-05-31 04:00] VITALS: BP 151/64
[2019-05-31 08:00] VITALS: BP 157/59
[2019-05-31] MEDS: FUROSEMIDE 40MG/4ML VIAL IV SCH (08:09)
[2019-05-31] MEDS: BENAZEPRIL 10MG TABLET PO SCH ×2 (08:10→20:21)
[2019-05-31 08:25] LABS: BASOPHILS % 0.6 % (0.0-2.0); EOSINOPHILS % 5.7 % (0.0-5.0); HEMATOCRIT. 30.9 % (36.0-48.0); HEMOGLOBIN. 10.2 g/dL (12.0-16.0); LYMPHOCYTES % 35.2 % (20.0-50.0); MEAN CORPUSCULAR HEMOGLOBIN 27.4 pg (28.0-32.0); MEAN CORPUSCULAR VOLUME 82.9 fL (81.0-99.0); MEAN PLATELET VOLUME 6.5 fl (7.4-10.4); MONOCYTES % 8.6 % (2.0-8.0); NEUTROPHILS % 49.9 % (40.0-76.0); PLATELET 176 x1000/uL (130-400); RED BLOOD CELL COUNT 3.73 mill/uL (4.2-5.4); RED CELL DISTRIBUTION WIDTH 16.3 % (11.6-14.6)
[2019-05-31 12:00] VITALS: BP 108/66
[2019-05-31 16:00] VITALS: BP 158/70
[2019-05-31] MEDS: CLONIDINE 0.1MG TABLET PO PRN (18:15)
[2019-05-31] MEDS: MEROPENEM 500MG in NORMAL SALINE 50ML IV SCH (20:21)
[2019-05-31 20:24] VITALS: BP 134/52
[2019-06-01] VITALS (7 sets, daily range): BP systolic 117–170; BP diastolic 55–66
[2019-06-01 06:46] LABS: BASOPHILS % 0.9 % (0.0-2.0); EOSINOPHILS % 5.9 % (0.0-5.0); HEMATOCRIT. 32.2 % (36.0-48.0); HEMOGLOBIN. 10.5 g/dL (12.0-16.0); LYMPHOCYTES % 39.9 % (20.0-50.0); MEAN CORPUSCULAR HEMOGLOBIN 27.2 pg (28.0-32.0); MEAN CORPUSCULAR VOLUME 83.5 fL (81.0-99.0); MEAN PLATELET VOLUME 6.8 fl (7.4-10.4); MONOCYTES % 7.6 % (2.0-8.0); NEUTROPHILS % 45.7 % (40.0-76.0); PLATELET 197 x1000/uL (130-400); RED BLOOD CELL COUNT 3.86 mill/uL (4.2-5.4); RED CELL DISTRIBUTION WIDTH 16.6 % (11.6-14.6)
[2019-06-01] MEDS ORDERED: FERROUS SULFATE 325MG TABLET PO SCH (07:50)
[2019-06-01] MEDS: FUROSEMIDE 40MG/4ML VIAL IV SCH (08:26)
[2019-06-01] MEDS: BENAZEPRIL 10MG TABLET PO SCH ×2 (08:26→20:13)
[2019-06-01] MEDS ORDERED: IRON SUCROSE COMPLEX 100 MG/5 ML ML IV SCH (20:00)
[2019-06-01] MEDS ORDERED: EPOETIN ALFA 10000UNITS/ML VIAL SUBCUT NR (22:45)
== END 2019-06-02 00:05 | disposition home or self-care (01) | DRG 673 ==
LOC: ER 19:14 → 6WST 05-27 01:11 → EDBEDREQ 05-27 01:15 → EDBEDREQDT 05-27 01:15 → EDBEDREQTM 05-27 01:15 → ENRESERV 05-27 07:42
PROVIDERS: ADMIT Internal Medicine; ATTEND Internal Medicine
PROC: 03180JD Bypass Left Brachial Artery to Upper Arm Vein with Synthetic Substitute, Open Approach (ICD-10-PCS; principal; 2019-05-28)
DX: I12.0 Hypertensive chronic kidney disease with stage 5 chronic kidney disease or end stage renal disease (principal); E43 Unspecified severe protein-calorie malnutrition; N18.6 End stage renal disease; N17.9 Acute kidney failure, unspecified; N39.0 Urinary tract infection, site not specified; E87.0 Hyperosmolality and hypernatremia; B96.1 Klebsiella pneumoniae [K. pneumoniae] as the cause of diseases classified elsewhere; D63.1 Anemia in chronic kidney disease; E78.5 Hyperlipidemia, unspecified; I73.9 Peripheral vascular disease, unspecified; Z89.611 Acquired absence of right leg above knee; Z99.2 Dependence on renal dialysis; Z68.38 Body mass index [BMI] 38.0-38.9, adult; Z88.2 Allergy status to sulfonamides; Z91.041 Radiographic dye allergy status; Z79.899 Other long term (current) drug therapy
CPT/HCPCS: 36415; 71045; 80048; 80053; 80061; 81003; 83735; 83880; 84100; 84443; 84484; 85025; 87077; 87186; 93005; 93970; 99285; C1768; J1200; J1644; J1940; J2185; J2405; J2704; J2795; J3490; J7050

== ENCOUNTER 2019-06-20 10:00 | Inpatient (IN) | payer MEDICARE, MEDICAID ==
[~2019-06-20] VITALS: Ht 162.6 cm; Wt 94.9 kg
[~2019-06-20 10:00] MED LIST changes: -FERR325T6 MT; -FOLI1TAB63 MT
[2019-06-20] MEDS ORDERED: MORPHINE SULFATE 2 MG/ML CPJ (NOT FOR IM USE) IV ONE (10:30)
[2019-06-20] MEDS ORDERED: ONDANSETRON HCL 4MG/2ML INJ IV ONE (10:30)
[2019-06-20 11:00] LABS: BASOPHILS % 0.8 % (0.0-2.0); EOSINOPHILS % 5.8 % (0.0-5.0); HEMATOCRIT. 27.3 % (36.0-48.0); HEMOGLOBIN. 8.9 g/dL (12.0-16.0); LYMPHOCYTES % 31.1 % (20.0-50.0); MEAN CORPUSCULAR HEMOGLOBIN 27.2 pg (28.0-32.0); MEAN CORPUSCULAR VOLUME 83.5 fL (81.0-99.0); MEAN PLATELET VOLUME 7.4 fl (7.4-10.4); MONOCYTES % 8.8 % (2.0-8.0); NEUTROPHILS % 53.5 % (40.0-76.0); PLATELET 218 x1000/uL (130-400); RED BLOOD CELL COUNT 3.28 mill/uL (4.2-5.4); RED CELL DISTRIBUTION WIDTH 16.8 % (11.6-14.6)
[2019-06-20 11:03] LABS: PROTHROMBIN TIME 10.9 sec (9.6-11.0)
[2019-06-20 11:07] LABS: CHLORIDE 113 mEq/L (98-107)
[2019-06-20] MEDS ORDERED: INSULIN REGULAR (HUMULIN R) 300UNITS/3ML IV ONE (11:45)
[2019-06-20] MEDS ORDERED: CALCIUM CHLORIDE 1GM/10ML SYR IV ONE (11:45)
[2019-06-20] MEDS ORDERED: SODIUM BICARBONATE 8.4% 1 MEQ/ML 50ML SYR IV ONE (11:45)
[2019-06-20] MEDS ORDERED: DEXTROSE 50% WATER 50ML SYRINGE IV ONE (11:45)
[2019-06-20 12:29] LABS: PHOSPHORUS 4.9 mg/dL (2.5-4.9)
[2019-06-20] MEDS ORDERED: ONDANSETRON HCL 4MG/2ML INJ IV PRN ×2 (13:00)
[2019-06-20] MEDS ORDERED: MORPHINE SULFATE 2 MG/ML CPJ (NOT FOR IM USE) IV NR (13:15)
[2019-06-20 16:30] VITALS: BP 121/79
[2019-06-20 16:34] VITALS: BP 121/79
[2019-06-20] MEDS ORDERED: SORBITOL 70% SOLN 30ML PO NR (17:00)
[2019-06-20] MEDS ORDERED: SODIUM POLYSTYRENE SULFONATE 15 G/60 ML BOT PO NR (17:00)
[2019-06-20 17:30] VITALS: BP 115/39
[2019-06-20 20:00] VITALS: BP 129/77
[2019-06-20 22:00] VITALS: BP 103/69
[2019-06-20] MEDS: NYSTATIN POWDER 15GM TOP SCH (22:39)
[2019-06-20] MEDS ORDERED: EPOETIN ALFA 4000UNITS/ML VIAL SUBCUT NR (23:00)
[2019-06-21] VITALS (11 sets, daily range): BP systolic 102–140; BP diastolic 30–89
[2019-06-21] MEDS: NYSTATIN POWDER 15GM TOP SCH ×3 (05:22→22:14)
[2019-06-21 06:10] LABS: BASOPHILS % 0.4 % (0.0-2.0); EOSINOPHILS % 4.2 % (0.0-5.0); HEMATOCRIT. 28.2 % (36.0-48.0); HEMOGLOBIN. 9.4 g/dL (12.0-16.0); MEAN CORPUSCULAR HEMOGLOBIN 27.2 pg (28.0-32.0); MEAN CORPUSCULAR VOLUME 81.6 fL (81.0-99.0); MEAN PLATELET VOLUME 7.2 fl (7.4-10.4); NEUTROPHILS % 62.4 % (40.0-76.0); PLATELET 201 x1000/uL (130-400); RED BLOOD CELL COUNT 3.45 mill/uL (4.2-5.4); RED CELL DISTRIBUTION WIDTH 16.6 % (11.6-14.6)
[2019-06-21] MEDS: MORPHINE SULFATE 2 MG/ML CPJ (NOT FOR IM USE) IV PRN (11:38)
[2019-06-21] MEDS: SODIUM CHLORIDE 0.45% 1,000 ML IV SCH (19:24)
[2019-06-21] MEDS ORDERED: LORAZEPAM 2MG/ML CPJ IV PRN (20:15)
[2019-06-21] MEDS ORDERED: LORAZEPAM 2MG/ML CPJ IM PRN (20:15)
[2019-06-22] VITALS (13 sets, daily range): BP systolic 98–144; BP diastolic 47–69
[2019-06-22] MEDS: NYSTATIN POWDER 15GM TOP SCH ×3 (05:35→21:25)
[2019-06-22] MEDS ORDERED: HYDROCODONE/ACETAMINOPHEN 5/325MG TABLET PO PRN (09:00)
[2019-06-22] MEDS: MORPHINE SULFATE 2 MG/ML CPJ (NOT FOR IM USE) IV PRN ×2 (09:29→20:23)
[2019-06-22] MEDS: SODIUM CHLORIDE 0.45% 1,000 ML IV SCH (15:26)
[2019-06-22] MEDS: EPOETIN ALFA 4000UNITS/ML VIAL SUBCUT SCH (21:24)
[2019-06-23] VITALS (11 sets, daily range): BP systolic 115–165; BP diastolic 52–81
[2019-06-23] MEDS: NYSTATIN POWDER 15GM TOP SCH ×3 (05:43→22:21)
[2019-06-23 07:08] LABS: BASOPHILS % 0.8 % (0.0-2.0); EOSINOPHILS % 8.8 % (0.0-5.0); HEMOGLOBIN. 9.8 g/dL (12.0-16.0); LYMPHOCYTES % 29.8 % (20.0-50.0); MEAN CORPUSCULAR HEMOGLOBIN 26.5 pg (28.0-32.0); MEAN CORPUSCULAR VOLUME 83.8 fL (81.0-99.0); MEAN PLATELET VOLUME 7.2 fl (7.4-10.4); MONOCYTES % 7.7 % (2.0-8.0); NEUTROPHILS % 52.9 % (40.0-76.0); PLATELET 238 x1000/uL (130-400); RED CELL DISTRIBUTION WIDTH 16.9 % (11.6-14.6)
[2019-06-23] MEDS ORDERED: MAGNESIUM 2 G PREMIX 50 ML IV NR (11:00)
[2019-06-23] MEDS: SODIUM CHLORIDE 0.45% 1,000 ML IV SCH (11:34)
[2019-06-23] MEDS: IRON SUCROSE COMPLEX 100 MG/5 ML ML IV SCH (13:48)
[2019-06-23] MEDS: MORPHINE SULFATE 2 MG/ML CPJ (NOT FOR IM USE) IV PRN (13:50)
[2019-06-23 16:51] LABS: HEPATITIS B SURFACE AB < 3.1 mIU/mL
[2019-06-23 17:02] LABS: HEPATITIS B SURFACE ANTIGEN NEGATIVE
[2019-06-23 17:32] LABS: HEPATITIS A AB IGM NEGATIVE (NEGATIVE)
[2019-06-24] VITALS (12 sets, daily range): BP systolic 128–165; BP diastolic 53–90
[2019-06-24] MEDS: NYSTATIN POWDER 15GM TOP SCH ×3 (06:37→21:11)
[2019-06-24] MEDS: IRON SUCROSE COMPLEX 100 MG/5 ML ML IV SCH (12:19)
[2019-06-24 15:26] LABS: BASOPHILS % 0.6 % (0.0-2.0); EOSINOPHILS % 5.2 % (0.0-5.0); HEMATOCRIT. 29.7 % (36.0-48.0); HEMOGLOBIN. 9.6 g/dL (12.0-16.0); LYMPHOCYTES % 23.4 % (20.0-50.0); MEAN CORPUSCULAR HEMOGLOBIN 26.8 pg (28.0-32.0); MEAN CORPUSCULAR VOLUME 82.8 fL (81.0-99.0); MEAN PLATELET VOLUME 6.9 fl (7.4-10.4); MONOCYTES % 7.5 % (2.0-8.0); NEUTROPHILS % 63.3 % (40.0-76.0); PLATELET 236 x1000/uL (130-400); RED BLOOD CELL COUNT 3.58 mill/uL (4.2-5.4); RED CELL DISTRIBUTION WIDTH 16.9 % (11.6-14.6)
[2019-06-24] MEDS: SODIUM CHLORIDE 0.45% 1,000 ML IV SCH (15:26)
[2019-06-24] MEDS: EPOETIN ALFA 4000UNITS/ML VIAL SUBCUT SCH (21:11)
[2019-06-25] VITALS (12 sets, daily range): BP systolic 126–164; BP diastolic 46–86
[2019-06-25] MEDS: SODIUM CHLORIDE 0.45% 1,000 ML IV SCH ×2 (04:10→22:23)
[2019-06-25] MEDS: NYSTATIN POWDER 15GM TOP SCH ×3 (06:09→22:23)
[2019-06-25 07:28] LABS: BASOPHILS % 0.8 % (0.0-2.0); EOSINOPHILS % 7.5 % (0.0-5.0); HEMATOCRIT. 28.1 % (36.0-48.0); HEMOGLOBIN. 9.2 g/dL (12.0-16.0); LYMPHOCYTES % 28.5 % (20.0-50.0); MEAN CORPUSCULAR HEMOGLOBIN 27.1 pg (28.0-32.0); MEAN CORPUSCULAR VOLUME 82.4 fL (81.0-99.0); MEAN PLATELET VOLUME 6.8 fl (7.4-10.4); MONOCYTES % 9.1 % (2.0-8.0); NEUTROPHILS % 54.1 % (40.0-76.0); PLATELET 223 x1000/uL (130-400); RED CELL DISTRIBUTION WIDTH 16.6 % (11.6-14.6)
[2019-06-25] MEDS: IRON SUCROSE COMPLEX 100 MG/5 ML ML IV SCH (08:45)
[2019-06-25] MEDS ORDERED: LIDOCAINE HCL 1% 20ML VIAL (Pyxis) INJ ONE (10:09)
[2019-06-25] MEDS ORDERED: DIPHENHYDRAMINE 50MG/ML VIAL IV PRN ×2 (11:15→14:00)
[2019-06-25] MEDS: MORPHINE SULFATE 2 MG/ML CPJ (NOT FOR IM USE) IV PRN (12:06)
[2019-06-25] MEDS: FOLIC ACID/VITAMIN B COMP W-C TABLET PO SCH (18:21)
[2019-06-25] MEDS: FERROUS SULFATE 325MG TABLET PO SCH (18:21)
[2019-06-25] MEDS: SEVELAMER CARBONATE 800 MG TABLET PO SCH (18:21)
[2019-06-25] MEDS: BRIMONIDINE 0.2% OPHTH DROPS 5ML BOTHEYE SCH (18:22)
[2019-06-25] MEDS: FUROSEMIDE 20MG TABLET PO SCH (18:22)
[2019-06-25] MEDS: CARVEDILOL 3.125 MG TABLET PO SCH (20:22)
[2019-06-25] MEDS: FAMOTIDINE 20MG TABLET PO SCH (20:22)
[2019-06-25] MEDS: AMLODIPINE 5MG TABLET PO SCH (20:22)
[2019-06-26] VITALS (12 sets, daily range): BP systolic 101–144; BP diastolic 44–77
[2019-06-26] MEDS: NYSTATIN POWDER 15GM TOP SCH ×3 (06:07→21:42)
[2019-06-26 06:39] LABS: BASOPHILS % 0.7 % (0.0-2.0); EOSINOPHILS % 7.3 % (0.0-5.0); HEMOGLOBIN. 9.2 g/dL (12.0-16.0); LYMPHOCYTES % 26.9 % (20.0-50.0); MEAN CORPUSCULAR HEMOGLOBIN 28.2 pg (28.0-32.0); MEAN CORPUSCULAR VOLUME 83.1 fL (81.0-99.0); MEAN PLATELET VOLUME 6.8 fl (7.4-10.4); NEUTROPHILS % 57.1 % (40.0-76.0); PLATELET 219 x1000/uL (130-400); RED BLOOD CELL COUNT 3.25 mill/uL (4.2-5.4); RED CELL DISTRIBUTION WIDTH 17.1 % (11.6-14.6)
[2019-06-26] MEDS: AMLODIPINE 5MG TABLET PO SCH ×2 (09:00→21:12)
[2019-06-26] MEDS: FOLIC ACID/VITAMIN B COMP W-C TABLET PO SCH (09:08)
[2019-06-26] MEDS: SEVELAMER CARBONATE 800 MG TABLET PO SCH ×3 (09:08→17:54)
[2019-06-26] MEDS: FERROUS SULFATE 325MG TABLET PO SCH ×2 (09:08→17:54)
[2019-06-26] MEDS: IRON SUCROSE COMPLEX 100 MG/5 ML ML IV SCH (09:08)
[2019-06-26] MEDS: FUROSEMIDE 20MG TABLET PO SCH ×2 (09:09→17:54)
[2019-06-26] MEDS: CARVEDILOL 3.125 MG TABLET PO SCH ×2 (09:09→21:12)
[2019-06-26] MEDS: ASCORBIC ACID 500 MG TABLET PO SCH (09:09)
[2019-06-26] MEDS: BRIMONIDINE 0.2% OPHTH DROPS 5ML BOTHEYE SCH ×2 (09:28→17:54)
[2019-06-26] MEDS: BENAZEPRIL 10MG TABLET PO SCH (09:30)
[2019-06-26] MEDS ORDERED: LACTULOSE 20G/30ML UDC PO NR (17:30)
[2019-06-26] MEDS: FAMOTIDINE 20MG TABLET PO SCH (21:12)
[2019-06-26] MEDS: EPOETIN ALFA 4000UNITS/ML VIAL SUBCUT SCH (21:41)
[2019-06-27] VITALS (12 sets, daily range): BP systolic 120–159; BP diastolic 43–104
[2019-06-27] MEDS: NYSTATIN POWDER 15GM TOP SCH ×3 (06:10→21:50)
[2019-06-27 06:32] LABS: BASOPHILS % 0.7 % (0.0-2.0); EOSINOPHILS % 6.4 % (0.0-5.0); HEMATOCRIT. 27.8 % (36.0-48.0); LYMPHOCYTES % 31.6 % (20.0-50.0); MEAN CORPUSCULAR HEMOGLOBIN 26.9 pg (28.0-32.0); MEAN CORPUSCULAR VOLUME 82.9 fL (81.0-99.0); MEAN PLATELET VOLUME 6.8 fl (7.4-10.4); MONOCYTES % 8.7 % (2.0-8.0); NEUTROPHILS % 52.6 % (40.0-76.0); PLATELET 250 x1000/uL (130-400); RED BLOOD CELL COUNT 3.35 mill/uL (4.2-5.4); RED CELL DISTRIBUTION WIDTH 16.8 % (11.6-14.6)
[2019-06-27] MEDS: SEVELAMER CARBONATE 800 MG TABLET PO SCH ×3 (08:25→17:35)
[2019-06-27] MEDS: FOLIC ACID/VITAMIN B COMP W-C TABLET PO SCH (08:25)
[2019-06-27] MEDS: FERROUS SULFATE 325MG TABLET PO SCH ×2 (08:25→17:35)
[2019-06-27] MEDS: FUROSEMIDE 20MG TABLET PO SCH ×2 (08:26→17:35)
[2019-06-27] MEDS: ASCORBIC ACID 500 MG TABLET PO SCH (08:26)
[2019-06-27] MEDS: BENAZEPRIL 10MG TABLET PO SCH (08:26)
[2019-06-27] MEDS: BRIMONIDINE 0.2% OPHTH DROPS 5ML BOTHEYE SCH ×2 (08:27→21:51)
[2019-06-27] MEDS: AMLODIPINE 5MG TABLET PO SCH ×2 (08:27→21:52)
[2019-06-27] MEDS ORDERED: LACTULOSE 20G/30ML UDC PO NR (09:00)
[2019-06-27] MEDS: FAMOTIDINE 20MG TABLET PO SCH (21:51)
[2019-06-27] MEDS: ACETAMINOPHEN 325MG TABLET PO PRN (21:55)
[2019-06-28] VITALS (13 sets, daily range): BP systolic 97–152; BP diastolic 38–63
[2019-06-28] MEDS: NYSTATIN POWDER 15GM TOP SCH ×3 (05:32→21:57)
[2019-06-28 06:40] LABS: BASOPHILS % 0.8 % (0.0-2.0); EOSINOPHILS % 4.5 % (0.0-5.0); HEMATOCRIT. 28.3 % (36.0-48.0); HEMOGLOBIN. 9.3 g/dL (12.0-16.0); LYMPHOCYTES % 22.4 % (20.0-50.0); MEAN CORPUSCULAR HEMOGLOBIN 27.3 pg (28.0-32.0); MEAN CORPUSCULAR VOLUME 83.2 fL (81.0-99.0); MEAN PLATELET VOLUME 6.9 fl (7.4-10.4); MONOCYTES % 7.9 % (2.0-8.0); NEUTROPHILS % 64.4 % (40.0-76.0); PLATELET 258 x1000/uL (130-400); RED CELL DISTRIBUTION WIDTH 17.1 % (11.6-14.6)
[2019-06-28] MEDS: FUROSEMIDE 20MG TABLET PO SCH ×2 (09:38→17:50)
[2019-06-28] MEDS: BRIMONIDINE 0.2% OPHTH DROPS 5ML BOTHEYE SCH ×2 (09:38→17:51)
[2019-06-28] MEDS: FOLIC ACID/VITAMIN B COMP W-C TABLET PO SCH (09:38)
[2019-06-28] MEDS: LACTULOSE 20G/30ML UDC PO SCH ×2 (09:38→09:51)
[2019-06-28] MEDS: ASCORBIC ACID 500 MG TABLET PO SCH (09:38)
[2019-06-28] MEDS: FERROUS SULFATE 325MG TABLET PO SCH ×2 (09:39→17:50)
[2019-06-28] MEDS: SEVELAMER CARBONATE 800 MG TABLET PO SCH ×3 (09:39→17:50)
[2019-06-28] MEDS: BENAZEPRIL 10MG TABLET PO SCH (09:45)
[2019-06-28] MEDS: AMLODIPINE 5MG TABLET PO SCH ×2 (09:45→21:56)
[2019-06-28] MEDS: ACETAMINOPHEN 325MG TABLET PO PRN (19:56)
[2019-06-28] MEDS: FAMOTIDINE 20MG TABLET PO SCH (21:56)
[2019-06-29] VITALS (11 sets, daily range): BP systolic 112–141; BP diastolic 50–64
[2019-06-29 01:15] LABS: BASOPHILS % 0.7 % (0.0-2.0); EOSINOPHILS % 3.6 % (0.0-5.0); HEMATOCRIT. 30.2 % (36.0-48.0); HEMOGLOBIN. 9.7 g/dL (12.0-16.0); LYMPHOCYTES % 26.7 % (20.0-50.0); MEAN CORPUSCULAR VOLUME 83.6 fL (81.0-99.0); MEAN PLATELET VOLUME 6.9 fl (7.4-10.4); MONOCYTES % 8.9 % (2.0-8.0); NEUTROPHILS % 60.1 % (40.0-76.0); PLATELET 277 x1000/uL (130-400); RED BLOOD CELL COUNT 3.61 mill/uL (4.2-5.4); RED CELL DISTRIBUTION WIDTH 17.3 % (11.6-14.6)
[2019-06-29] MEDS: DIPHENHYDRAMINE 25MG CAPSULE PO PRN ×2 (04:21→16:41)
[2019-06-29] MEDS: NYSTATIN POWDER 15GM TOP SCH ×3 (06:43→21:26)
[2019-06-29] MEDS: SEVELAMER CARBONATE 800 MG TABLET PO SCH ×3 (07:59→16:41)
[2019-06-29] MEDS: BENAZEPRIL 10MG TABLET PO SCH (07:59)
[2019-06-29] MEDS: FOLIC ACID/VITAMIN B COMP W-C TABLET PO SCH (07:59)
[2019-06-29] MEDS: FERROUS SULFATE 325MG TABLET PO SCH ×2 (07:59→16:41)
[2019-06-29] MEDS: AMLODIPINE 5MG TABLET PO SCH ×2 (08:00→21:21)
[2019-06-29] MEDS: FUROSEMIDE 20MG TABLET PO SCH ×2 (08:00→16:41)
[2019-06-29] MEDS: ASCORBIC ACID 500 MG TABLET PO SCH (08:00)
[2019-06-29] MEDS: CITRIC ACID/SODIUM CITRATE SOLN 15ML UDC PO SCH (08:01)
[2019-06-29] MEDS: BRIMONIDINE 0.2% OPHTH DROPS 5ML BOTHEYE SCH ×2 (08:06→17:12)
[2019-06-29] MEDS ORDERED: CEFTRIAXONE 1 G PREMIX 50 ML IV SCH (18:00)
[2019-06-29] MEDS: FAMOTIDINE 20MG TABLET PO SCH (21:21)
[2019-06-30] VITALS: BP 129/75
[2019-06-30 04:00] VITALS: BP 100/73
[2019-06-30] MEDS: NYSTATIN POWDER 15GM TOP SCH ×3 (06:19→21:50)
[2019-06-30 08:00] VITALS: BP 144/41
[2019-06-30] MEDS: FERROUS SULFATE 325MG TABLET PO SCH ×2 (08:58→18:05)
[2019-06-30] MEDS: FUROSEMIDE 20MG TABLET PO SCH ×2 (08:58→18:05)
[2019-06-30] MEDS: SEVELAMER CARBONATE 800 MG TABLET PO SCH ×3 (08:58→18:05)
[2019-06-30] MEDS: LACTULOSE 20G/30ML UDC PO SCH (08:58)
[2019-06-30] MEDS: FOLIC ACID/VITAMIN B COMP W-C TABLET PO SCH (08:58)
[2019-06-30] MEDS: BRIMONIDINE 0.2% OPHTH DROPS 5ML BOTHEYE SCH ×2 (08:59→17:00)
[2019-06-30] MEDS: BENAZEPRIL 10MG TABLET PO SCH (09:00)
[2019-06-30] MEDS: AMLODIPINE 5MG TABLET PO SCH ×2 (09:00→21:50)
[2019-06-30 12:00] VITALS: BP 125/56
[2019-06-30] MEDS: ASCORBIC ACID 500 MG TABLET PO SCH (12:01)
[2019-06-30 16:00] VITALS: BP 150/46
[2019-06-30] MEDS: MEROPENEM 500MG in NORMAL SALINE 50ML IV SCH (18:06)
[2019-06-30 20:00] VITALS: BP 126/55
[2019-06-30 21:14] LABS: BASOPHILS % 1.2 % (0.0-2.0); EOSINOPHILS % 4.1 % (0.0-5.0); HEMATOCRIT. 30.3 % (36.0-48.0); HEMOGLOBIN. 9.8 g/dL (12.0-16.0); LYMPHOCYTES % 28.3 % (20.0-50.0); MEAN CORPUSCULAR HEMOGLOBIN 27.5 pg (28.0-32.0); MEAN CORPUSCULAR VOLUME 85.3 fL (81.0-99.0); MONOCYTES % 10.1 % (2.0-8.0); NEUTROPHILS % 56.3 % (40.0-76.0); RED BLOOD CELL COUNT 3.56 mill/uL (4.2-5.4); RED CELL DISTRIBUTION WIDTH 17.9 % (11.6-14.6)
[2019-06-30] MEDS: FAMOTIDINE 20MG TABLET PO SCH (21:50)
[2019-06-30 21:55] LABS: MEAN PLATELET VOLUME 7.2 fl (7.4-10.4); PLATELET 275 x1000/uL (130-400)
[2019-06-30 21:57] LABS: PLATELET ESTIMATE NORMAL
[2019-06-30] MEDS: ACETAMINOPHEN 325MG TABLET PO PRN (22:49)
[2019-07-01] VITALS: BP 134/55
[2019-07-01 04:00] VITALS: BP 109/57
[2019-07-01] MEDS: NYSTATIN POWDER 15GM TOP SCH ×3 (05:45→21:46)
[2019-07-01 08:00] VITALS: BP 102/51
[2019-07-01] MEDS: CITRIC ACID/SODIUM CITRATE SOLN 15ML UDC PO SCH (09:00)
[2019-07-01] MEDS: BENAZEPRIL 10MG TABLET PO SCH (09:00)
[2019-07-01] MEDS: AMLODIPINE 5MG TABLET PO SCH ×2 (09:00→21:46)
[2019-07-01] MEDS: LACTULOSE 20G/30ML UDC PO SCH (09:00)
[2019-07-01] MEDS: SEVELAMER CARBONATE 800 MG TABLET PO SCH ×3 (09:10→17:49)
[2019-07-01] MEDS: FOLIC ACID/VITAMIN B COMP W-C TABLET PO SCH (09:11)
[2019-07-01] MEDS: ASCORBIC ACID 500 MG TABLET PO SCH (09:11)
[2019-07-01] MEDS: FERROUS SULFATE 325MG TABLET PO SCH ×2 (09:11→17:49)
[2019-07-01] MEDS: FUROSEMIDE 20MG TABLET PO SCH ×2 (09:11→17:49)
[2019-07-01] MEDS: BRIMONIDINE 0.2% OPHTH DROPS 5ML BOTHEYE SCH ×2 (09:17→17:50)
[2019-07-01 12:00] VITALS: BP 124/52
[2019-07-01] MEDS: MEROPENEM 500MG in NORMAL SALINE 50ML IV SCH (14:20)
[2019-07-01 16:00] VITALS: BP 136/51
[2019-07-01] MEDS: ACETAMINOPHEN 325MG TABLET PO PRN (17:50)
[2019-07-01 20:00] VITALS: BP 121/48
[2019-07-01] MEDS ORDERED: LEVOFLOXACIN 500MG PREMIX 100 ML IV SCH (21:00)
[2019-07-01] MEDS: DIPHENHYDRAMINE 25MG CAPSULE PO PRN (21:46)
[2019-07-01] MEDS: FAMOTIDINE 20MG TABLET PO SCH (21:46)
[2019-07-01] MEDS: LEVOFLOXACIN 500MG PREMIX 100 ML IV SCH ×2 (22:00→22:47)
[2019-07-01] MEDS: TOBRAMYCIN/DEXAMETH 0.1/0.3% OPHTH SUSP 2.5ML LEFTEYE SCH (23:24)
[2019-07-02] VITALS: BP 130/50
[2019-07-02 04:00] VITALS: BP 124/47
[2019-07-02] MEDS: TOBRAMYCIN/DEXAMETH 0.1/0.3% OPHTH SUSP 2.5ML LEFTEYE SCH ×4 (04:52→16:00)
[2019-07-02] MEDS: NYSTATIN POWDER 15GM TOP SCH ×2 (05:46→14:00)
[2019-07-02 08:00] VITALS: BP 132/40
[2019-07-02] MEDS: LEVOFLOXACIN 500MG TABLET PO SCH ×2 (08:00→09:42)
[2019-07-02] MEDS: CITRIC ACID/SODIUM CITRATE SOLN 15ML UDC PO SCH ×2 (09:00→09:42)
[2019-07-02] MEDS: FOLIC ACID/VITAMIN B COMP W-C TABLET PO SCH ×2 (09:00→09:42)
[2019-07-02] MEDS: BENAZEPRIL 10MG TABLET PO SCH ×2 (09:00→09:43)
[2019-07-02] MEDS: LACTULOSE 20G/30ML UDC PO SCH ×2 (09:00→09:42)
[2019-07-02] MEDS: ASCORBIC ACID 500 MG TABLET PO SCH ×2 (09:00→09:42)
[2019-07-02] MEDS: FERROUS SULFATE 325MG TABLET PO SCH ×2 (09:42→17:00)
[2019-07-02] MEDS: FUROSEMIDE 20MG TABLET PO SCH ×2 (09:42→17:00)
[2019-07-02] MEDS: BRIMONIDINE 0.2% OPHTH DROPS 5ML BOTHEYE SCH ×2 (09:43→17:00)
[2019-07-02] MEDS: AMLODIPINE 5MG TABLET PO SCH (09:43)
[2019-07-02] MEDS: SEVELAMER CARBONATE 800 MG TABLET PO SCH ×3 (09:49→17:50)
[2019-07-02] MEDS ORDERED: LEVO500T89 MT (11:03)
[2019-07-02 12:00] VITALS: BP 112/48
[2019-07-02 16:00] VITALS: BP 133/60
[2019-07-02 17:54] VITALS: BP 133/60
== END 2019-07-02 19:44 | disposition home or self-care (01) | DRG 535 ==
LOC: ER 10:00 → 3WST 12:39 → EDBEDREQSVC 12:50 → EDBEDREQ 12:50 → EDBEDREQTM 12:50 → EDBEDREQSVC 14:08 → ENRESERV 14:55 → 6EST 06-29 22:54
PROVIDERS: ADMIT Internal Medicine; ATTEND Internal Medicine
DX: S72.001A Fracture of unspecified part of neck of right femur, initial encounter for closed fracture (principal); I50.23 Acute on chronic systolic (congestive) heart failure; E43 Unspecified severe protein-calorie malnutrition; N18.6 End stage renal disease; I13.2 Hypertensive heart and chronic kidney disease with heart failure and with stage 5 chronic kidney disease, or end stage renal disease; N17.9 Acute kidney failure, unspecified; I42.9 Cardiomyopathy, unspecified; N39.0 Urinary tract infection, site not specified; M97.01XA Periprosthetic fracture around internal prosthetic right hip joint, initial encounter; E87.8 Other disorders of electrolyte and fluid balance, not elsewhere classified; E78.5 Hyperlipidemia, unspecified; D63.8 Anemia in other chronic diseases classified elsewhere; E87.5 Hyperkalemia; M85.80 Other specified disorders of bone density and structure, unspecified site; Z96.641 Presence of right artificial hip joint; Z99.2 Dependence on renal dialysis; I07.1 Rheumatic tricuspid insufficiency; Z89.612 Acquired absence of left leg above knee; I27.21 Secondary pulmonary arterial hypertension; W06.XXXA Fall from bed, initial encounter; Z68.35 Body mass index [BMI] 35.0-35.9, adult; Y93.89 Activity, other specified; Y92.89 Other specified places as the place of occurrence of the external cause; Y99.8 Other external cause status; S09.90XA Unspecified injury of head, initial encounter; B96.1 Klebsiella pneumoniae [K. pneumoniae] as the cause of diseases classified elsewhere; H54.8 Legal blindness, as defined in USA; I73.9 Peripheral vascular disease, unspecified; E83.42 Hypomagnesemia; Z86.19 Personal history of other infectious and parasitic diseases; Z88.2 Allergy status to sulfonamides; Z89.611 Acquired absence of right leg above knee; B96.89 Other specified bacterial agents as the cause of diseases classified elsewhere; Z88.8 Allergy status to other drugs, medicaments and biological substances
CPT/HCPCS: 36415; 71045; 73502; 73552; 80048; 80053; 82962; 83735; 84100; 84145; 84484; 85025; 86705; 86706; 86709; 86803; 86850; 86900; 87077; 87186; 87340; 93005; 93306; 97161; 97164; 97165; 97530; 99291; J0696; J0885; J1200; J1815; J1956; J2060; J2185; J2270; J2405; J3475; J3490; Q0163

== ENCOUNTER 2019-07-10 13:02 | Inpatient (IN) | payer MEDICARE, MEDICAID ==
[~2019-07-10] VITALS: Ht 165.1 cm; Wt 83.6 kg
[~2019-07-10 13:02] MED LIST changes: -CARV3.1242 MT; -FERR-63 PO; +LEVO500T89 MT
[2019-07-10 15:42] LABS: CHLORIDE 112 mEq/L (98-107)
[2019-07-10] MEDS ORDERED: ACETAMINOPHEN 325MG TABLET PO PRN (16:45)
[2019-07-10] MEDS ORDERED: ONDANSETRON HCL 4MG/2ML INJ IV PRN (16:45)
[2019-07-10] MEDS ORDERED: IPRATROPIUM/ALBUTEROL 0.5-3(2.5)MG/3ML NEB HHN PRN (16:45)
[2019-07-10] MEDS ORDERED: CLONIDINE 0.1MG TABLET PO PRN (16:45)
[2019-07-10 17:22] LABS: BASOPHILS % 0.9 % (0.0-2.0); EOSINOPHILS % 5.6 % (0.0-5.0); HEMATOCRIT. 30.2 % (36.0-48.0); HEMOGLOBIN. 10.2 g/dL (12.0-16.0); LYMPHOCYTES % 33.5 % (20.0-50.0); MEAN CORPUSCULAR HEMOGLOBIN 27.9 pg (28.0-32.0); MEAN PLATELET VOLUME 7.4 fl (7.4-10.4); MONOCYTES % 8.7 % (2.0-8.0); NEUTROPHILS % 51.3 % (40.0-76.0); PLATELET 232 x1000/uL (130-400); RED BLOOD CELL COUNT 3.64 mill/uL (4.2-5.4); RED CELL DISTRIBUTION WIDTH 17.1 % (11.6-14.6)
[2019-07-10 18:10] LABS: PHOSPHORUS 3.9 mg/dL (2.5-4.9)
[2019-07-10 19:10] LABS: PLATELET ESTIMATE NORMAL
[2019-07-10 20:27] VITALS: BP 133/61
[2019-07-10 22:00] VITALS: BP 134/60
[2019-07-10 23:56] VITALS: BP 140/52
[2019-07-11] VITALS (11 sets, daily range): BP systolic 111–153; BP diastolic 33–70
[2019-07-11] MEDS: SODIUM POLYSTYRENE SULFONATE 15 G/60 ML BOT PO NR ×2 (01:00→02:25)
[2019-07-11] MEDS ORDERED: LACTULOSE 20G/30ML UDC PO NR ×2 (03:55→16:00)
[2019-07-11] MEDS ORDERED: LACTULOSE 20G/30ML UDC PO PRN (04:00)
[2019-07-11] MEDS: SODIUM CHLORIDE 0.45% 1,000 ML IV SCH ×2 (04:00→14:46)
[2019-07-11 08:15] LABS: BASOPHILS % 0.9 % (0.0-2.0); HEMATOCRIT. 31.2 % (36.0-48.0); HEMOGLOBIN. 10.2 g/dL (12.0-16.0); MEAN CORPUSCULAR HEMOGLOBIN 27.3 pg (28.0-32.0); MEAN CORPUSCULAR VOLUME 83.5 fL (81.0-99.0); MONOCYTES % 8.7 % (2.0-8.0); NEUTROPHILS % 53.4 % (40.0-76.0); PLATELET 234 x1000/uL (130-400); RED BLOOD CELL COUNT 3.73 mill/uL (4.2-5.4); RED CELL DISTRIBUTION WIDTH 17.3 % (11.6-14.6)
[2019-07-11 08:26] LABS: CHLORIDE 113 mEq/L (98-107)
[2019-07-11 08:33] LABS: LDL CHOLESTEROL 86 mg/dL (5-100)
[2019-07-11 08:35] LABS: HDL CHOLESTEROL 48 mg/dL (40-59)
[2019-07-11] MEDS: LACTULOSE 20G/30ML UDC PO SCH (09:00)
[2019-07-11] MEDS ORDERED: LIDOCAINE HCL 1% 20ML VIAL (Pyxis) INJ ONE (10:34)
[2019-07-11] MEDS: FOLIC ACID/VITAMIN B COMP W-C TABLET PO SCH (11:07)
[2019-07-11] MEDS: AMLODIPINE 5MG TABLET PO SCH ×2 (11:07→22:48)
[2019-07-11] MEDS: FAMOTIDINE 20MG TABLET PO SCH (11:07)
[2019-07-11] MEDS: BRIMONIDINE 0.2% OPHTH DROPS 5ML BOTHEYE SCH ×2 (11:09→22:48)
[2019-07-11] MEDS ORDERED: CALCIUM CHLORIDE 1GM/10ML SYR IV ONE (12:30)
[2019-07-11] MEDS ORDERED: INSULIN REGULAR (HUMULIN R) 300UNITS/3ML SUBCUT ONE (12:30)
[2019-07-11] MEDS ORDERED: DEXTROSE 50% WATER 50ML SYRINGE IV ONE (12:30)
[2019-07-11] MEDS: SEVELAMER CARBONATE 800 MG TABLET PO SCH ×2 (13:08→18:50)
[2019-07-11] MEDS: HYDROCODONE/ACETAMINOPHEN 5/325MG TABLET PO PRN (13:09)
[2019-07-11] MEDS ORDERED: INSULIN REGULAR (HUMULIN R) UD 100 UNITS/ML SYR IV SCH (14:00)
[2019-07-11] MEDS ORDERED: SODIUM POLYSTYRENE SULFONATE 15 G/60 ML BOT PO NR (16:30)
[2019-07-11] MEDS ORDERED: FAMOTIDINE(NEO) 1MG/ML SUSP PO SCH (17:00)
[2019-07-11] MEDS: DIPHENHYDRAMINE 50MG/ML VIAL IV PRN (22:37)
[2019-07-11] MEDS: ATORVASTATIN CALCIUM 20MG TABLET PO SCH (22:47)
[2019-07-12] VITALS (12 sets, daily range): BP systolic 105–155; BP diastolic 44–75
[2019-07-12] MEDS: SODIUM CHLORIDE 0.45% 1,000 ML IV SCH ×3 (00:38→21:03)
[2019-07-12 06:04] LABS: EOSINOPHILS % 6.9 % (0.0-5.0); HEMATOCRIT. 25.7 % (36.0-48.0); HEMOGLOBIN. 8.8 g/dL (12.0-16.0); LYMPHOCYTES % 35.7 % (20.0-50.0); MEAN CORPUSCULAR VOLUME 82.2 fL (81.0-99.0); MONOCYTES % 8.9 % (2.0-8.0); NEUTROPHILS % 47.5 % (40.0-76.0); PLATELET 170 x1000/uL (130-400); RED BLOOD CELL COUNT 3.13 mill/uL (4.2-5.4); RED CELL DISTRIBUTION WIDTH 16.7 % (11.6-14.6)
[2019-07-12] MEDS: SEVELAMER CARBONATE 800 MG TABLET PO SCH ×3 (06:55→17:54)
[2019-07-12] MEDS: BRIMONIDINE 0.2% OPHTH DROPS 5ML BOTHEYE SCH ×2 (08:20→21:45)
[2019-07-12] MEDS: FAMOTIDINE 20MG TABLET PO SCH (08:21)
[2019-07-12] MEDS: FOLIC ACID/VITAMIN B COMP W-C TABLET PO SCH (08:21)
[2019-07-12] MEDS: LACTULOSE 20G/30ML UDC PO SCH (08:21)
[2019-07-12] MEDS: AMLODIPINE 5MG TABLET PO SCH ×2 (08:21→21:45)
[2019-07-12] MEDS: ATORVASTATIN CALCIUM 20MG TABLET PO SCH (21:43)
[2019-07-12] MEDS: DIPHENHYDRAMINE 50MG/ML VIAL IV PRN (23:36)
[2019-07-13] VITALS (12 sets, daily range): BP systolic 119–147; BP diastolic 32–100
[2019-07-13] MEDS: HYDROCODONE/ACETAMINOPHEN 5/325MG TABLET PO PRN (03:47)
[2019-07-13] MEDS: SEVELAMER CARBONATE 800 MG TABLET PO SCH ×3 (06:43→18:25)
[2019-07-13] MEDS: FAMOTIDINE 20MG TABLET PO SCH (08:40)
[2019-07-13] MEDS: BRIMONIDINE 0.2% OPHTH DROPS 5ML BOTHEYE SCH ×2 (08:40→20:27)
[2019-07-13] MEDS: FOLIC ACID/VITAMIN B COMP W-C TABLET PO SCH (08:41)
[2019-07-13] MEDS: AMLODIPINE 5MG TABLET PO SCH ×2 (08:41→20:27)
[2019-07-13] MEDS: DIPHENHYDRAMINE 50MG/ML VIAL IV PRN (08:42)
[2019-07-13] MEDS: LACTULOSE 20G/30ML UDC PO SCH (08:51)
[2019-07-13 10:20] LABS: BASOPHILS % 1.3 % (0.0-2.0); EOSINOPHILS % 7.3 % (0.0-5.0); HEMOGLOBIN. 8.6 g/dL (12.0-16.0); LYMPHOCYTES % 34.2 % (20.0-50.0); MEAN CORPUSCULAR HEMOGLOBIN 27.6 pg (28.0-32.0); MEAN CORPUSCULAR VOLUME 83.4 fL (81.0-99.0); NEUTROPHILS % 49.2 % (40.0-76.0); PLATELET 160 x1000/uL (130-400); RED BLOOD CELL COUNT 3.12 mill/uL (4.2-5.4); RED CELL DISTRIBUTION WIDTH 16.8 % (11.6-14.6)
[2019-07-13] MEDS: SODIUM CHLORIDE 0.45% 1,000 ML IV SCH (11:30)
[2019-07-13] MEDS: EPOETIN ALFA 4000UNITS/ML VIAL SUBCUT SCH (20:27)
[2019-07-13] MEDS: ATORVASTATIN CALCIUM 20MG TABLET PO SCH (20:27)
[2019-07-14] VITALS (12 sets, daily range): BP systolic 115–143; BP diastolic 47–75
[2019-07-14] MEDS: SODIUM CHLORIDE 0.45% 1,000 ML IV SCH (05:23)
[2019-07-14] MEDS: HYDROCODONE/ACETAMINOPHEN 5/325MG TABLET PO PRN (06:34)
[2019-07-14] MEDS: SEVELAMER CARBONATE 800 MG TABLET PO SCH ×3 (06:34→17:57)
[2019-07-14 06:42] LABS: BASOPHILS % 0.6 % (0.0-2.0); EOSINOPHILS % 4.9 % (0.0-5.0); HEMATOCRIT. 28.7 % (36.0-48.0); HEMOGLOBIN. 9.5 g/dL (12.0-16.0); LYMPHOCYTES % 32.2 % (20.0-50.0); MEAN CORPUSCULAR HEMOGLOBIN 27.5 pg (28.0-32.0); MEAN CORPUSCULAR VOLUME 82.8 fL (81.0-99.0); MEAN PLATELET VOLUME 6.7 fl (7.4-10.4); NEUTROPHILS % 55.3 % (40.0-76.0); PLATELET 174 x1000/uL (130-400); RED BLOOD CELL COUNT 3.47 mill/uL (4.2-5.4); RED CELL DISTRIBUTION WIDTH 16.8 % (11.6-14.6)
[2019-07-14] MEDS: LACTULOSE 20G/30ML UDC PO SCH (09:00)
[2019-07-14] MEDS: FAMOTIDINE 20MG TABLET PO SCH (10:30)
[2019-07-14] MEDS: BRIMONIDINE 0.2% OPHTH DROPS 5ML BOTHEYE SCH ×2 (10:30→21:20)
[2019-07-14] MEDS: FOLIC ACID/VITAMIN B COMP W-C TABLET PO SCH (10:31)
[2019-07-14] MEDS: AMLODIPINE 5MG TABLET PO SCH ×2 (10:31→21:20)
[2019-07-14] MEDS: IRON SUCROSE COMPLEX 100 MG/5 ML ML IV SCH (16:04)
[2019-07-14 17:16] LABS: CLARITY URINE CLEAR (CLEAR); COLOR URINE YELLOW (YELLOW); KETONES URINE NEGATIVE (NEGATIVE); LEUKOCYTE ESTERASE URINE 3+ (NEGATIVE); NITRITE URINE NEGATIVE (NEGATIVE); OCCULT BLOOD URINE NEGATIVE (NEGATIVE); PROTEIN URINE 1+ (NEGATIVE); SPECIFIC GRAVITY URINE 1.006 (1.005-1.030); UROBILINOGEN URINE 0.2 E.U./dL (0.2-1.0)
[2019-07-14] MEDS: DIPHENHYDRAMINE 50MG/ML VIAL IV PRN (17:57)
[2019-07-14 19:38] LABS: HEPATITIS B SURFACE AB < 3.1 mIU/mL
[2019-07-14 19:49] LABS: HEPATITIS B SURFACE ANTIGEN NEGATIVE
[2019-07-14 20:18] LABS: HEPATITIS A AB IGM NEGATIVE (NEGATIVE)
[2019-07-14] MEDS: ATORVASTATIN CALCIUM 20MG TABLET PO SCH (21:20)
[2019-07-15] VITALS (12 sets, daily range): BP systolic 120–158; BP diastolic 52–87
[2019-07-15 07:09] LABS: BASOPHILS % 0.6 % (0.0-2.0); EOSINOPHILS % 4.7 % (0.0-5.0); HEMATOCRIT. 30.4 % (36.0-48.0); HEMOGLOBIN. 9.8 g/dL (12.0-16.0); LYMPHOCYTES % 33.7 % (20.0-50.0); MEAN CORPUSCULAR HEMOGLOBIN 26.7 pg (28.0-32.0); MEAN CORPUSCULAR VOLUME 82.7 fL (81.0-99.0); MONOCYTES % 8.3 % (2.0-8.0); NEUTROPHILS % 52.7 % (40.0-76.0); PLATELET 202 x1000/uL (130-400); RED BLOOD CELL COUNT 3.67 mill/uL (4.2-5.4); RED CELL DISTRIBUTION WIDTH 17.1 % (11.6-14.6)
[2019-07-15] MEDS: SEVELAMER CARBONATE 800 MG TABLET PO SCH ×3 (08:23→16:42)
[2019-07-15] MEDS: FOLIC ACID/VITAMIN B COMP W-C TABLET PO SCH (08:23)
[2019-07-15] MEDS: FAMOTIDINE 20MG TABLET PO SCH (08:23)
[2019-07-15] MEDS: IRON SUCROSE COMPLEX 100 MG/5 ML ML IV SCH (08:24)
[2019-07-15] MEDS: BRIMONIDINE 0.2% OPHTH DROPS 5ML BOTHEYE SCH ×2 (08:24→20:54)
[2019-07-15] MEDS: LACTULOSE 20G/30ML UDC PO SCH (08:25)
[2019-07-15] MEDS: AMLODIPINE 5MG TABLET PO SCH ×2 (08:26→20:55)
[2019-07-15] MEDS: DIPHENHYDRAMINE 50MG/ML VIAL IV PRN (19:42)
[2019-07-15] MEDS: ATORVASTATIN CALCIUM 20MG TABLET PO SCH (20:54)
[2019-07-15] MEDS: EPOETIN ALFA 4000UNITS/ML VIAL SUBCUT SCH (20:55)
[2019-07-16] VITALS (12 sets, daily range): BP systolic 105–170; BP diastolic 50–78
[2019-07-16 06:59] LABS: BASOPHILS % 0.8 % (0.0-2.0); EOSINOPHILS % 4.8 % (0.0-5.0); HEMATOCRIT. 29.3 % (36.0-48.0); HEMOGLOBIN. 9.7 g/dL (12.0-16.0); LYMPHOCYTES % 34.4 % (20.0-50.0); MEAN CORPUSCULAR HEMOGLOBIN 27.2 pg (28.0-32.0); MEAN CORPUSCULAR VOLUME 82.3 fL (81.0-99.0); MEAN PLATELET VOLUME 7.1 fl (7.4-10.4); MONOCYTES % 6.9 % (2.0-8.0); NEUTROPHILS % 53.1 % (40.0-76.0); PLATELET 198 x1000/uL (130-400); RED BLOOD CELL COUNT 3.56 mill/uL (4.2-5.4); RED CELL DISTRIBUTION WIDTH 16.4 % (11.6-14.6)
[2019-07-16] MEDS: AMLODIPINE 5MG TABLET PO SCH ×2 (08:14→21:13)
[2019-07-16] MEDS: FOLIC ACID/VITAMIN B COMP W-C TABLET PO SCH (08:14)
[2019-07-16] MEDS: IRON SUCROSE COMPLEX 100 MG/5 ML ML IV SCH (08:14)
[2019-07-16] MEDS: BRIMONIDINE 0.2% OPHTH DROPS 5ML BOTHEYE SCH ×2 (08:14→21:13)
[2019-07-16] MEDS: SEVELAMER CARBONATE 800 MG TABLET PO SCH ×3 (08:14→17:40)
[2019-07-16] MEDS: FAMOTIDINE 20MG TABLET PO SCH (08:14)
[2019-07-16] MEDS: LACTULOSE 20G/30ML UDC PO SCH (08:15)
[2019-07-16] MEDS: DIPHENHYDRAMINE 50MG/ML VIAL IV PRN ×2 (08:36→18:39)
[2019-07-16] MEDS: ATORVASTATIN CALCIUM 20MG TABLET PO SCH (21:12)
[2019-07-16] MEDS: HYDROCODONE/ACETAMINOPHEN 5/325MG TABLET PO PRN ×2 (22:49→23:10)
[2019-07-17] VITALS (11 sets, daily range): BP systolic 100–155; BP diastolic 45–79
[2019-07-17 06:11] LABS: BASOPHILS % 1.1 % (0.0-2.0); EOSINOPHILS % 5.3 % (0.0-5.0); HEMATOCRIT. 29.2 % (36.0-48.0); HEMOGLOBIN. 9.7 g/dL (12.0-16.0); LYMPHOCYTES % 38.7 % (20.0-50.0); MEAN CORPUSCULAR HEMOGLOBIN 27.3 pg (28.0-32.0); MEAN CORPUSCULAR VOLUME 82.4 fL (81.0-99.0); MEAN PLATELET VOLUME 7.1 fl (7.4-10.4); MONOCYTES % 7.3 % (2.0-8.0); NEUTROPHILS % 47.6 % (40.0-76.0); PLATELET 167 x1000/uL (130-400); RED BLOOD CELL COUNT 3.55 mill/uL (4.2-5.4); RED CELL DISTRIBUTION WIDTH 16.6 % (11.6-14.6)
[2019-07-17] MEDS: LACTULOSE 20G/30ML UDC PO SCH (09:00)
[2019-07-17] MEDS: IRON SUCROSE COMPLEX 100 MG/5 ML ML IV SCH (09:46)
[2019-07-17] MEDS: FAMOTIDINE 20MG TABLET PO SCH (09:46)
[2019-07-17] MEDS: AMLODIPINE 5MG TABLET PO SCH ×2 (09:48→22:00)
[2019-07-17] MEDS: SEVELAMER CARBONATE 800 MG TABLET PO SCH ×3 (09:48→17:31)
[2019-07-17] MEDS: FOLIC ACID/VITAMIN B COMP W-C TABLET PO SCH (09:48)
[2019-07-17] MEDS: BRIMONIDINE 0.2% OPHTH DROPS 5ML BOTHEYE SCH ×2 (09:50→22:15)
[2019-07-17] MEDS: HYDROCODONE/ACETAMINOPHEN 5/325MG TABLET PO PRN (11:22)
[2019-07-17] MEDS: DIPHENHYDRAMINE 50MG/ML VIAL IV PRN (11:23)
[2019-07-17] MEDS: ATORVASTATIN CALCIUM 20MG TABLET PO SCH (21:59)
[2019-07-17] MEDS: EPOETIN ALFA 4000UNITS/ML VIAL SUBCUT SCH (22:00)
[2019-07-18] VITALS: BP 156/55
[2019-07-18 04:00] VITALS: BP 138/45
[2019-07-18] MEDS: SEVELAMER CARBONATE 800 MG TABLET PO SCH ×3 (06:53→17:58)
[2019-07-18] MEDS: DIPHENHYDRAMINE 50MG/ML VIAL IV PRN ×3 (06:54→18:18)
[2019-07-18 08:00] VITALS: BP 147/48
[2019-07-18] MEDS: LACTULOSE 20G/30ML UDC PO SCH (09:00)
[2019-07-18] MEDS: FOLIC ACID/VITAMIN B COMP W-C TABLET PO SCH (10:05)
[2019-07-18] MEDS: AMLODIPINE 5MG TABLET PO SCH ×2 (10:11→21:00)
[2019-07-18] MEDS: IRON SUCROSE COMPLEX 100 MG/5 ML ML IV SCH (10:12)
[2019-07-18] MEDS: BRIMONIDINE 0.2% OPHTH DROPS 5ML BOTHEYE SCH ×2 (10:12→21:07)
[2019-07-18 12:00] VITALS: BP 142/47
[2019-07-18] MEDS: FAMOTIDINE 20MG TABLET PO SCH (12:42)
[2019-07-18 16:00] VITALS: BP 123/44
[2019-07-18] MEDS: HYDROCODONE/ACETAMINOPHEN 5/325MG TABLET PO PRN (18:19)
[2019-07-18 20:00] VITALS: BP 119/52
[2019-07-18] MEDS: ATORVASTATIN CALCIUM 20MG TABLET PO SCH (21:00)
[2019-07-19] VITALS: BP 120/60
[2019-07-19 04:00] VITALS: BP 107/49
[2019-07-19 08:00] VITALS: BP 141/51
[2019-07-19] MEDS: LACTULOSE 20G/30ML UDC PO SCH (09:00)
[2019-07-19] MEDS: BRIMONIDINE 0.2% OPHTH DROPS 5ML BOTHEYE SCH ×2 (09:20→22:15)
[2019-07-19] MEDS: FOLIC ACID/VITAMIN B COMP W-C TABLET PO SCH (09:21)
[2019-07-19] MEDS: DIPHENHYDRAMINE 50MG/ML VIAL IV PRN (09:21)
[2019-07-19] MEDS: AMLODIPINE 5MG TABLET PO SCH ×2 (09:22→22:16)
[2019-07-19] MEDS: FAMOTIDINE 20MG TABLET PO SCH (09:22)
[2019-07-19] MEDS: SEVELAMER CARBONATE 800 MG TABLET PO SCH ×3 (09:23→17:44)
[2019-07-19] MEDS: HYDROCODONE/ACETAMINOPHEN 5/325MG TABLET PO PRN (09:23)
[2019-07-19 12:00] VITALS: BP 119/38
[2019-07-19 16:00] VITALS: BP 127/55
[2019-07-19 20:00] VITALS: BP 118/31
[2019-07-19] MEDS: ATORVASTATIN CALCIUM 20MG TABLET PO SCH (22:16)
[2019-07-20] VITALS: BP 101/95
[2019-07-20 04:00] VITALS: BP 124/49
[2019-07-20 08:00] VITALS: BP 119/51
[2019-07-20] MEDS: FAMOTIDINE 20MG TABLET PO SCH (08:47)
[2019-07-20] MEDS: SEVELAMER CARBONATE 800 MG TABLET PO SCH ×3 (08:47→16:58)
[2019-07-20] MEDS: AMLODIPINE 5MG TABLET PO SCH ×2 (08:47→21:37)
[2019-07-20] MEDS: FOLIC ACID/VITAMIN B COMP W-C TABLET PO SCH (08:48)
[2019-07-20] MEDS: LACTULOSE 20G/30ML UDC PO SCH (08:48)
[2019-07-20] MEDS: BRIMONIDINE 0.2% OPHTH DROPS 5ML BOTHEYE SCH ×2 (08:48→21:36)
[2019-07-20 12:00] VITALS: BP 122/44
[2019-07-20 16:00] VITALS: BP 112/47
[2019-07-20] MEDS: DIPHENHYDRAMINE 50MG/ML VIAL IV PRN ×2 (16:59→22:38)
[2019-07-20 20:00] VITALS: BP 146/58
[2019-07-20] MEDS: EPOETIN ALFA 4000UNITS/ML VIAL SUBCUT SCH (21:36)
[2019-07-20] MEDS: ATORVASTATIN CALCIUM 20MG TABLET PO SCH (21:37)
[2019-07-21] VITALS: BP 128/57
[2019-07-21 05:34] VITALS: BP 109/49
[2019-07-21 08:00] VITALS: BP 148/94
[2019-07-21] MEDS: LACTULOSE 20G/30ML UDC PO SCH (09:00)
[2019-07-21] MEDS: AMLODIPINE 5MG TABLET PO SCH (09:41)
[2019-07-21] MEDS: SEVELAMER CARBONATE 800 MG TABLET PO SCH ×2 (09:41→12:30)
[2019-07-21] MEDS: FOLIC ACID/VITAMIN B COMP W-C TABLET PO SCH (09:41)
[2019-07-21] MEDS: FAMOTIDINE 20MG TABLET PO SCH (09:41)
[2019-07-21] MEDS: DIPHENHYDRAMINE 50MG/ML VIAL IV PRN (09:42)
[2019-07-21] MEDS: BRIMONIDINE 0.2% OPHTH DROPS 5ML BOTHEYE SCH (09:42)
[2019-07-21 12:00] VITALS: BP 137/39
[2019-07-21 14:23] VITALS: BP 137/39
== END 2019-07-21 16:20 | DRG 640 ==
LOC: ER 13:02 → EDBEDREQSVC 17:44 → EDBEDREQTM 18:12 → EDBEDREQ 18:12 → ENRESERV 19:52 → 3WST 20:27 → 6EST 07-17 15:34
PROVIDERS: ADMIT Internal Medicine; ATTEND Internal Medicine
PROC: 02HV33Z Insertion of Infusion Device into Superior Vena Cava, Percutaneous Approach (ICD-10-PCS; principal; 2019-07-11)
PROC: B548ZZA Ultrasonography of Superior Vena Cava, Guidance (ICD-10-PCS; 2019-07-11)
PROC: 5A1D70Z Performance of Urinary Filtration, Intermittent, Less than 6 Hours Per Day (ICD-10-PCS; 2019-07-11)
PROC: 5A1D70Z Performance of Urinary Filtration, Intermittent, Less than 6 Hours Per Day (ICD-10-PCS; 2019-07-18)
DX: E87.5 Hyperkalemia (principal); S72.91XA Unspecified fracture of right femur, initial encounter for closed fracture; N18.6 End stage renal disease; I12.0 Hypertensive chronic kidney disease with stage 5 chronic kidney disease or end stage renal disease; G93.40 Encephalopathy, unspecified; E46 Unspecified protein-calorie malnutrition; I42.9 Cardiomyopathy, unspecified; N39.0 Urinary tract infection, site not specified; E87.2 Acidosis; D64.9 Anemia, unspecified; D72.1 Eosinophilia; E78.5 Hyperlipidemia, unspecified; R74.8 Abnormal levels of other serum enzymes; E86.0 Dehydration; B96.1 Klebsiella pneumoniae [K. pneumoniae] as the cause of diseases classified elsewhere; D63.8 Anemia in other chronic diseases classified elsewhere; X58.XXXA Exposure to other specified factors, initial encounter; I73.9 Peripheral vascular disease, unspecified; Z89.611 Acquired absence of right leg above knee; Z91.15 Patient's noncompliance with renal dialysis; Z99.2 Dependence on renal dialysis; Z68.31 Body mass index [BMI] 31.0-31.9, adult; Z88.2 Allergy status to sulfonamides; Z91.041 Radiographic dye allergy status; Z79.899 Other long term (current) drug therapy; Y93.89 Activity, other specified; Y92.89 Other specified places as the place of occurrence of the external cause; Y99.8 Other external cause status
CPT/HCPCS: 36415; 71045; 76937; 80048; 80053; 80061; 81003; 82962; 83735; 84100; 84443; 85025; 86705; 86706; 86709; 86803; 87077; 87186; 87340; 87635; 93005; 93970; 97163; 97166; 97530; 97535; 99285; C1725; J0885; J1200; J1815; J3490

== ENCOUNTER 2019-07-28 18:49 | Inpatient (IN) | payer MEDICARE, MEDICAID ==
[~2019-07-28] VITALS: Ht 172.7 cm; Wt 74.8 kg
[2019-07-28 21:27] LABS: BASOPHILS % 0.6 % (0.0-2.0); EOSINOPHILS % 3.8 % (0.0-5.0); HEMATOCRIT. 39.4 % (36.0-48.0); HEMOGLOBIN. 12.9 g/dL (12.0-16.0); LYMPHOCYTES % 32.9 % (20.0-50.0); MEAN CORPUSCULAR VOLUME 85.8 fL (81.0-99.0); MONOCYTES % 7.8 % (2.0-8.0); NEUTROPHILS % 54.9 % (40.0-76.0); PLATELET 184 x1000/uL (130-400); RED BLOOD CELL COUNT 4.59 mill/uL (4.2-5.4); RED CELL DISTRIBUTION WIDTH 16.6 % (11.6-14.6)
[2019-07-28 21:59] LABS: PARTIAL THROMBOPLASTIN TIME 22.6 sec (23.4-31.0); PROTHROMBIN TIME 10.5 sec (9.6-11.0)
[2019-07-28 22:02] LABS: CHLORIDE 101 mEq/L (98-107)
[2019-07-29 06:44] VITALS: BP 139/51
[2019-07-29] MEDS ORDERED: CLON0.1T PO (06:56)
[2019-07-29] MEDS ORDERED: LACT10SO7 PO (06:56)
[2019-07-29] MEDS ORDERED: ATOR20TA65 PO (06:56)
[2019-07-29] MEDS ORDERED: ONDA4TAB11 PO (06:56)
[2019-07-29] MEDS ORDERED: NEOM1PAC2 TP (06:56)
[2019-07-29] MEDS ORDERED: ACET650T37 PO (06:56)
[2019-07-29] MEDS ORDERED: NEPVIT PO (06:56)
[2019-07-29] MEDS ORDERED: DIPH25TA26 PO (06:56)
[2019-07-29] MEDS ORDERED: LACT10SO MT (06:56)
[2019-07-29 08:00] VITALS: BP 107/49
[2019-07-29] MEDS ORDERED: CLONIDINE 0.1MG TABLET PO PRN (08:30)
[2019-07-29] MEDS ORDERED: DIPHENHYDRAMINE 50MG/ML VIAL IV PRN (08:30)
[2019-07-29] MEDS ORDERED: ACETAMINOPHEN 325MG TABLET PO PRN (08:30)
[2019-07-29] MEDS ORDERED: ONDANSETRON HCL 4MG/2ML INJ IV PRN (08:30)
[2019-07-29 08:50] VITALS: BP 107/49
[2019-07-29 11:52] LABS: PHOSPHORUS 3.7 mg/dL (2.5-4.9)
[2019-07-29 12:00] VITALS: BP 115/40
[2019-07-29] MEDS ORDERED: CLONIDINE 0.1MG TABLET PO SCH (14:15)
[2019-07-29] MEDS: DIPHENHYDRAMINE 25MG CAPSULE PO PRN ×2 (15:36→22:48)
[2019-07-29 16:00] VITALS: BP 108/51
[2019-07-29] MEDS ORDERED: FAMOTIDINE(NEO) 1MG/ML SUSP PO SCH (17:20)
[2019-07-29] MEDS ORDERED: PREDNISONE 20MG TABLET PO SCH ×2 (18:20→23:00)
[2019-07-29] MEDS ORDERED: DIPHENHYDRAMINE 50MG/ML VIAL IV NR (18:20)
[2019-07-29] MEDS: SEVELAMER CARBONATE 800 MG TABLET PO SCH (18:29)
[2019-07-29 20:00] VITALS: BP 98/55
[2019-07-29] MEDS: AMLODIPINE 5MG TABLET PO SCH (21:00)
[2019-07-29] MEDS: BRIMONIDINE 0.2% OPHTH DROPS 5ML BOTHEYE SCH (22:46)
[2019-07-29] MEDS: ATORVASTATIN CALCIUM 20MG TABLET PO SCH (22:48)
[2019-07-30] VITALS (18 sets, daily range): BP systolic 83–156; BP diastolic 36–66
[2019-07-30] MEDS ORDERED: PREDNISONE 20MG TABLET PO SCH (02:00)
[2019-07-30] MEDS ORDERED: DEXTROSE 50% WATER 50ML SYRINGE IV PRN (04:30)
[2019-07-30 06:38] LABS: BASOPHILS % 0.2 % (0.0-2.0); HEMATOCRIT. 36.4 % (36.0-48.0); HEMOGLOBIN. 12.1 g/dL (12.0-16.0); LYMPHOCYTES % 22.6 % (20.0-50.0); MEAN CORPUSCULAR HEMOGLOBIN 28.2 pg (28.0-32.0); MEAN CORPUSCULAR VOLUME 85.1 fL (81.0-99.0); MEAN PLATELET VOLUME 7.9 fl (7.4-10.4); MONOCYTES % 0.9 % (2.0-8.0); NEUTROPHILS % 76.3 % (40.0-76.0); PLATELET 191 x1000/uL (130-400); RED BLOOD CELL COUNT 4.28 mill/uL (4.2-5.4); RED CELL DISTRIBUTION WIDTH 16.4 % (11.6-14.6)
[2019-07-30 06:41] LABS: CHLORIDE 100 mEq/L (98-107)
[2019-07-30 06:56] LABS: LDL CHOLESTEROL 68 mg/dL (5-100)
[2019-07-30 06:57] LABS: HDL CHOLESTEROL 71 mg/dL (40-59); TOTAL IRON BINDING CAPACITY 160 ug/dL (250-450)
[2019-07-30 07:20] LABS: VITAMIN B12 SERUM 292 pg/mL (211-911)
[2019-07-30] MEDS: BLOOD SUGAR DIAGNOSTIC STRIP TEST SCH ×4 (07:20→21:56)
[2019-07-30] MEDS: INSULIN LISPRO 100 UNITS/ML SUBCUT SCH ×4 (07:50→21:00)
[2019-07-30] MEDS: SEVELAMER CARBONATE 800 MG TABLET PO SCH ×3 (08:14→17:50)
[2019-07-30] MEDS ORDERED: DIPHENHYDRAMINE 50MG/ML VIAL IV SCH (08:30)
[2019-07-30] MEDS ORDERED: PREDNISONE 10MG TABLET PO SCH (08:30)
[2019-07-30] MEDS ORDERED: CEFAZOLIN 1000MG PREMIX 50 ML IV ONE ×2 (08:44→09:00)
[2019-07-30] MEDS ORDERED: IOHEXOL-300 100 ML BOTTLE ONE (09:27)
[2019-07-30] MEDS ORDERED: HEPARIN 1000 UNITS/ML 10ML ONE (09:27)
[2019-07-30] MEDS ORDERED: SODIUM BICARBONATE 4% (2.4MEQ) 5ML VIAL IV ONE (09:41)
[2019-07-30] MEDS ORDERED: LIDOCAINE HCL 1% 20ML VIAL (Pyxis) INJ ONE (09:41)
[2019-07-30] MEDS ORDERED: FENTANYL CITRATE/PF 50MCG/ML 2ML VIAL ONE (10:13)
[2019-07-30] MEDS ORDERED: HEPARIN 1000 UNITS/ML 10ML IV ONE (10:30)
[2019-07-30] MEDS ORDERED: FENTANYL CITRATE/PF 50MCG/ML 2ML VIAL IV ONE (10:45)
[2019-07-30] MEDS: AMLODIPINE 5MG TABLET PO SCH ×2 (12:00→21:00)
[2019-07-30] MEDS: BRIMONIDINE 0.2% OPHTH DROPS 5ML BOTHEYE SCH ×2 (13:30→21:56)
[2019-07-30] MEDS: FAMOTIDINE 20MG TABLET PO SCH (13:32)
[2019-07-30] MEDS: ATORVASTATIN CALCIUM 20MG TABLET PO SCH (21:55)
[2019-07-30] MEDS: DIPHENHYDRAMINE 25MG CAPSULE PO PRN (22:02)
[2019-07-31] VITALS: BP 78/37
[2019-07-31 04:00] VITALS: BP 83/40
[2019-07-31] MEDS: BLOOD SUGAR DIAGNOSTIC STRIP TEST SCH ×4 (07:16→21:00)
[2019-07-31] MEDS: INSULIN LISPRO 100 UNITS/ML SUBCUT SCH ×4 (07:17→21:00)
[2019-07-31 07:28] LABS: BASOPHILS % 0.1 % (0.0-2.0); HEMATOCRIT. 34.5 % (36.0-48.0); HEMOGLOBIN. 11.4 g/dL (12.0-16.0); LYMPHOCYTES % 17.2 % (20.0-50.0); MEAN CORPUSCULAR HEMOGLOBIN 27.8 pg (28.0-32.0); MEAN CORPUSCULAR VOLUME 84.4 fL (81.0-99.0); MEAN PLATELET VOLUME 7.5 fl (7.4-10.4); MONOCYTES % 4.8 % (2.0-8.0); NEUTROPHILS % 77.9 % (40.0-76.0); PLATELET 195 x1000/uL (130-400); RED BLOOD CELL COUNT 4.09 mill/uL (4.2-5.4); RED CELL DISTRIBUTION WIDTH 16.6 % (11.6-14.6)
[2019-07-31 08:00] VITALS: BP 109/51
[2019-07-31] MEDS: BRIMONIDINE 0.2% OPHTH DROPS 5ML BOTHEYE SCH ×2 (08:51→21:18)
[2019-07-31] MEDS: SEVELAMER CARBONATE 800 MG TABLET PO SCH ×3 (08:52→17:30)
[2019-07-31] MEDS: FAMOTIDINE 20MG TABLET PO SCH (08:52)
[2019-07-31] MEDS: AMLODIPINE 5MG TABLET PO SCH ×2 (09:00→21:00)
[2019-07-31 12:00] VITALS: BP 101/48
[2019-07-31] MEDS ORDERED: MIDODRINE HCL 2.5MG TABLET PO SCH (17:00)
[2019-07-31 20:00] VITALS: BP 95/72
[2019-07-31] MEDS: ATORVASTATIN CALCIUM 20MG TABLET PO SCH (21:00)
== END 2019-07-31 21:25 | DRG 252 ==
LOC: ER 18:49 → ENRESERV 07-29 05:16 → 6WST 07-29 06:02
PROVIDERS: ADMIT Internal Medicine; ATTEND Internal Medicine
PROC: 05CY3ZZ Extirpation of Matter from Upper Vein, Percutaneous Approach (ICD-10-PCS; principal; 2019-07-30)
PROC: 03CY3ZZ Extirpation of Matter from Upper Artery, Percutaneous Approach (ICD-10-PCS; 2019-07-30)
PROC: 02HV33Z Insertion of Infusion Device into Superior Vena Cava, Percutaneous Approach (ICD-10-PCS; 2019-07-30)
PROC: B31J1ZZ Fluoroscopy of Left Upper Extremity Arteries using Low Osmolar Contrast (ICD-10-PCS; 2019-07-30)
PROC: B51N1ZZ Fluoroscopy of Left Upper Extremity Veins using Low Osmolar Contrast (ICD-10-PCS; 2019-07-30)
PROC: B548ZZA Ultrasonography of Superior Vena Cava, Guidance (ICD-10-PCS; 2019-07-30)
PROC: B518ZZA Fluoroscopy of Superior Vena Cava, Guidance (ICD-10-PCS; 2019-07-30)
PROC: 5A1D70Z Performance of Urinary Filtration, Intermittent, Less than 6 Hours Per Day (ICD-10-PCS; 2019-07-30)
PROC: 057Y3ZZ Dilation of Upper Vein, Percutaneous Approach (ICD-10-PCS; 2019-07-30)
DX: T82.818A Embolism due to vascular prosthetic devices, implants and grafts, initial encounter (principal); N18.6 End stage renal disease; E46 Unspecified protein-calorie malnutrition; I13.2 Hypertensive heart and chronic kidney disease with heart failure and with stage 5 chronic kidney disease, or end stage renal disease; I73.9 Peripheral vascular disease, unspecified; E78.5 Hyperlipidemia, unspecified; I25.10 Atherosclerotic heart disease of native coronary artery without angina pectoris; D64.9 Anemia, unspecified; I95.9 Hypotension, unspecified; I71.4 Abdominal aortic aneurysm, without rupture; D72.829 Elevated white blood cell count, unspecified; I50.9 Heart failure, unspecified; E11.22 Type 2 diabetes mellitus with diabetic chronic kidney disease; Y83.2 Surgical operation with anastomosis, bypass or graft as the cause of abnormal reaction of the patient, or of later complication, without mention of misadventure at the time of the procedure; Z99.2 Dependence on renal dialysis; Z88.2 Allergy status to sulfonamides; Z91.041 Radiographic dye allergy status; Z79.899 Other long term (current) drug therapy; Z89.611 Acquired absence of right leg above knee; Z86.79 Personal history of other diseases of the circulatory system; Z68.25 Body mass index [BMI] 25.0-25.9, adult; Y92.89 Other specified places as the place of occurrence of the external cause
CPT/HCPCS: 36415; 36573; 36905; 71045; 76937; 80048; 80053; 80061; 82607; 82962; 83540; 83550; 83735; 83880; 84100; 84443; 84484; 85025; 86850; 86900; 87077; 87186; 93005; 93970; 97162; 99152; 99153; 99285; C1725; C1766; C1769; C2630; J0690; J1200; J1644; J1815; J3010; J3490; J7512; Q0163; Q9967; G0500

== ENCOUNTER 2021-01-13 10:16 | Inpatient (IN) | payer MEDICARE, MEDICAID ==
[~2021-01-13] VITALS: Ht 162.6 cm; Wt 83.5 kg
[~2021-01-13 10:16] MED LIST changes: +ACET650T37 PO; -ASCO500C15 PO; +ATOR20TA65 PO; -BENA10TA74 PO; -CITR15SO2 PO; +CLON0.1T PO; +DIPH25TA26 PO; -FOLI1TAB63 PO; -FURO-152 PO; +LACT10SO3 MT; +LACT10SO7 PO; -LEVO500T89 MT; +NEOM1PAC6 TP; +NEPVIT PO; +ONDA4TAB11 PO
[2021-01-13 12:51] LABS: BASOPHILS % 0.9 % (0.0-2.0); EOSINOPHILS % 1.4 % (0.0-5.0); HEMATOCRIT. 28.9 % (36.0-48.0); HEMOGLOBIN. 9.6 g/dL (12.0-16.0); LYMPHOCYTES % 18.8 % (20.0-50.0); MEAN CORPUSCULAR HEMOGLOBIN 29.7 pg (28.0-32.0); MEAN CORPUSCULAR VOLUME 89.5 fL (81.0-99.0); MEAN PLATELET VOLUME 7.3 fl (7.4-10.4); MONOCYTES % 12.1 % (2.0-8.0); NEUTROPHILS % 66.8 % (40.0-76.0); PLATELET 236 x1000/uL (130-400); RED BLOOD CELL COUNT 3.23 mill/uL (4.2-5.4); RED CELL DISTRIBUTION WIDTH 15.7 % (11.6-14.6)
[2021-01-13 12:58] LABS: CHLORIDE 103 mEq/L (98-107)
[2021-01-13 13:21] LABS: *AMPHETAMINES SCREEN URINE NEGATIVE (NEGATIVE); *BARBITURATES SCREEN URINE NEGATIVE (NEGATIVE); *BENZODIAZEPINES SCREEN URINE NEGATIVE (NEGATIVE); *COCAINE SCREEN URINE NEGATIVE (NEGATIVE)
[2021-01-13 13:23] LABS: CANNABINOID URINE SCREEN NEGATIVE (NEGATIVE); METHADONE URINE SCREEN NEGATIVE (NEGATIVE); OPIATES URINE SCREEN PRESUMTIVE POSITIVE (NEGATIVE); PHENCYCLIDINE URINE SCREEN NEGATIVE (NEGATIVE)
[2021-01-13 14:30] VITALS: BP 123/48
[2021-01-13 16:00] VITALS: BP 123/48
[2021-01-13] MEDS ORDERED: MAGNESIUM/ALUMINUM HYDROXIDE/SIMETHICONE 30ML UDC PO PRN (16:30)
[2021-01-13] MEDS ORDERED: ONDANSETRON HCL 4MG/2ML INJ IV PRN (16:30)
[2021-01-13] MEDS ORDERED: CLONIDINE 0.1MG TABLET PO PRN (16:30)
[2021-01-13] MEDS ORDERED: DOCUSATE SODIUM 100MG CAPSULE PO PRN (16:30)
[2021-01-13] MEDS ORDERED: HYDROCODONE/ACETAMINOPHEN 5/325MG TABLET PO PRN (16:30)
[2021-01-13] MEDS ORDERED: ENOXAPARIN 40MG/0.4ML SYR SUBCUT SCH (16:30)
[2021-01-13] MEDS ORDERED: ACETAMINOPHEN 325MG TABLET PO PRN (16:30)
[2021-01-13] MEDS ORDERED: ASCO500C18 PO (16:34)
[2021-01-13] MEDS ORDERED: CILO100T PO (16:34)
[2021-01-13] MEDS ORDERED: AMLO5TAB4 PO (16:34)
[2021-01-13] MEDS ORDERED: VITAMIN D3 PO (16:34)
[2021-01-13] MEDS ORDERED: GABA-529 PO (16:34)
[2021-01-13] MEDS ORDERED: CALC-1042 PO (16:34)
[2021-01-13] MEDS ORDERED: ASPI-1497 MT (16:34)
[2021-01-13] MEDS ORDERED: PROVASTATIN PO (16:36)
[2021-01-13] MEDS: ENOXAPARIN 30MG/0.3ML SYR SUBCUT SCH ×2 (17:00→18:21)
[2021-01-13] MEDS ORDERED: NALOXONE HCL 0.4MG/ML VIAL IV PRN (17:00)
[2021-01-13 20:00] VITALS: BP 122/50
[2021-01-13] MEDS: CILOSTAZOL 50 MG TABLET PO SCH (20:26)
[2021-01-13] MEDS: AMLODIPINE 5MG TABLET PO SCH (20:26)
[2021-01-14] VITALS: BP 109/37
[2021-01-14 04:00] VITALS: BP 123/43
[2021-01-14] MEDS: OMEPRAZOLE 20MG CAPSULE EXTENDED RELEASE PO SCH (06:59)
[2021-01-14 07:23] LABS: BASOPHILS % 0.5 % (0.0-2.0); EOSINOPHILS % 4.4 % (0.0-5.0); HEMATOCRIT. 27.5 % (36.0-48.0); HEMOGLOBIN. 9.2 g/dL (12.0-16.0); LYMPHOCYTES % 28.1 % (20.0-50.0); MEAN CORPUSCULAR HEMOGLOBIN 30.2 pg (28.0-32.0); MEAN CORPUSCULAR VOLUME 89.9 fL (81.0-99.0); MEAN PLATELET VOLUME 7.1 fl (7.4-10.4); MONOCYTES % 12.6 % (2.0-8.0); NEUTROPHILS % 54.4 % (40.0-76.0); PLATELET 234 x1000/uL (130-400); RED BLOOD CELL COUNT 3.06 mill/uL (4.2-5.4); RED CELL DISTRIBUTION WIDTH 15.5 % (11.6-14.6)
[2021-01-14 08:00] VITALS: BP 137/47
[2021-01-14] MEDS: AMLODIPINE 5MG TABLET PO SCH ×2 (09:00→21:22)
[2021-01-14] MEDS: CILOSTAZOL 50 MG TABLET PO SCH (09:00)
[2021-01-14] MEDS: GABAPENTIN 100MG CAPSULE PO SCH (09:47)
[2021-01-14] MEDS: ASCORBIC ACID 250 MG TABLET PO SCH (09:48)
[2021-01-14] MEDS: ASPIRIN 81MG EC TABLET PO SCH (09:48)
[2021-01-14 12:00] VITALS: BP 111/38
[2021-01-14 14:14] LABS: HEPATITIS B SURFACE ANTIGEN NEGATIVE
[2021-01-14 16:00] VITALS: BP 114/51
[2021-01-14] MEDS: ENOXAPARIN 30MG/0.3ML SYR SUBCUT SCH (17:00)
[2021-01-14 20:00] VITALS: BP 148/66
[2021-01-15 04:00] VITALS: BP_SYST 147; BP_SYST 159; BP_DIAS 60; BP_DIAS 63
[2021-01-15 05:48] LABS: BASOPHILS % 0.3 % (0.0-2.0); EOSINOPHILS % 3.9 % (0.0-5.0); HEMOGLOBIN. 9.7 g/dL (12.0-16.0); MEAN CORPUSCULAR HEMOGLOBIN 29.7 pg (28.0-32.0); MEAN CORPUSCULAR VOLUME 89.1 fL (81.0-99.0); MEAN PLATELET VOLUME 6.7 fl (7.4-10.4); MONOCYTES % 13.9 % (2.0-8.0); NEUTROPHILS % 48.9 % (40.0-76.0); PLATELET 251 x1000/uL (130-400); RED BLOOD CELL COUNT 3.26 mill/uL (4.2-5.4); RED CELL DISTRIBUTION WIDTH 15.3 % (11.6-14.6)
[2021-01-15] MEDS: OMEPRAZOLE 20MG CAPSULE EXTENDED RELEASE PO SCH (06:55)
[2021-01-15 07:03] LABS: CHLORIDE 105 mEq/L (98-107)
[2021-01-15 07:50] VITALS: BP 128/53
[2021-01-15] MEDS: AMLODIPINE 5MG TABLET PO SCH (09:59)
[2021-01-15] MEDS: ASPIRIN 81MG EC TABLET PO SCH (09:59)
[2021-01-15] MEDS: GABAPENTIN 100MG CAPSULE PO SCH (09:59)
[2021-01-15] MEDS: ASCORBIC ACID 250 MG TABLET PO SCH (09:59)
[2021-01-15 12:00] VITALS: BP 122/67
[2021-01-15 13:42] VITALS: BP 122/67
[2021-01-15] MEDS: ENOXAPARIN 30MG/0.3ML SYR SUBCUT SCH (16:46)
== END 2021-01-15 17:10 | disposition home health service (06) | DRG 640 ==
LOC: ER 10:16 → 6WST 12:31 → EDBEDREQTM 12:36 → EDBEDREQ 12:36 → ENRESERV 13:15 → CANRESERV 13:15 → ENRESERV 13:17
PROVIDERS: ADMIT Internal Medicine; ATTEND Internal Medicine
PROC: 5A1D70Z Performance of Urinary Filtration, Intermittent, Less than 6 Hours Per Day (ICD-10-PCS; principal; 2021-01-14)
DX: R62.7 Adult failure to thrive (principal); N18.6 End stage renal disease; I42.9 Cardiomyopathy, unspecified; E46 Unspecified protein-calorie malnutrition; I12.0 Hypertensive chronic kidney disease with stage 5 chronic kidney disease or end stage renal disease; E78.5 Hyperlipidemia, unspecified; I25.10 Atherosclerotic heart disease of native coronary artery without angina pectoris; I73.9 Peripheral vascular disease, unspecified; R26.89 Other abnormalities of gait and mobility; D63.8 Anemia in other chronic diseases classified elsewhere; Z96.641 Presence of right artificial hip joint; G89.29 Other chronic pain; Z99.2 Dependence on renal dialysis; Z86.718 Personal history of other venous thrombosis and embolism; Z89.611 Acquired absence of right leg above knee; Z88.2 Allergy status to sulfonamides; Z79.899 Other long term (current) drug therapy; I25.2 Old myocardial infarction; Z86.79 Personal history of other diseases of the circulatory system; Z79.02 Long term (current) use of antithrombotics/antiplatelets; Z68.31 Body mass index [BMI] 31.0-31.9, adult
CPT/HCPCS: 36415; 71045; 73552; 76881; 80048; 80053; 80305; 83880; 84484; 85025; 86705; 86709; 86803; 87340; 93005; 93306; 93971; 99285; C1893; J1650; A4315

== ENCOUNTER 2021-01-24 11:53 | Inpatient (IN) | payer MEDICARE, MEDICAID ==
[~2021-01-24] VITALS: Ht 162.6 cm; Wt 70.0 kg
[~2021-01-24 11:53] MED LIST changes: -ACET650T37 PO; +AMLO5TAB4 PO; +ASCO500C18 PO; +ASPI-1497 MT; +CALC-1042 PO; +CILO100T PO; -CLON0.1T PO; -DIPH25TA26 PO; -FAMO20TA8 PO; +GABA-529 PO; -LACT10SO3 MT; -LACT10SO7 PO; -NEOM1PAC6 TP; -NEPVIT PO; -ONDA4TAB11 PO; +PROVASTATIN PO; -SEVE800T8 MT; +VITAMIN D3 PO
[2021-01-24] MEDS ORDERED: ACETAMINOPHEN 325MG TABLET PO STA (12:18)
[2021-01-24 12:58] LABS: BASOPHILS % 0.9 % (0.0-2.0); EOSINOPHILS % 1.6 % (0.0-5.0); HEMATOCRIT. 27.2 % (36.0-48.0); HEMOGLOBIN. 8.8 g/dL (12.0-16.0); LYMPHOCYTES % 29.3 % (20.0-50.0); MEAN CORPUSCULAR HEMOGLOBIN 28.9 pg (28.0-32.0); MEAN CORPUSCULAR VOLUME 89.1 fL (81.0-99.0); MEAN PLATELET VOLUME 6.7 fl (7.4-10.4); MONOCYTES % 6.8 % (2.0-8.0); NEUTROPHILS % 61.4 % (40.0-76.0); PLATELET 302 x1000/uL (130-400); RED BLOOD CELL COUNT 3.05 mill/uL (4.2-5.4); RED CELL DISTRIBUTION WIDTH 15.4 % (11.6-14.6)
[2021-01-24 13:09] LABS: CHLORIDE 107 mEq/L (98-107)
[2021-01-24] MEDS ORDERED: DEXTROSE 50% WATER 50ML SYRINGE IV ONE (13:45)
[2021-01-24] MEDS ORDERED: INSULIN REGULAR (HUMULIN R) 300UNITS/3ML VIAL IV ONE (13:45)
[2021-01-24] MEDS ORDERED: SODIUM BICARBONATE 8.4% 1 MEQ/ML 50ML SYR IV ONE (13:45)
[2021-01-24] MEDS ORDERED: ALBUTEROL (0.083%) 2.5MG/3ML NEB HHN ONE (13:45)
[2021-01-24 18:00] VITALS: BP 117/43
[2021-01-24 20:00] VITALS: BP 117/53
[2021-01-24] MEDS ORDERED: HYDRALAZINE 20MG/ML VIAL IV PRN (21:00)
[2021-01-24] MEDS ORDERED: GUAIFENESIN 200MG/10ML SUGAR FREE UDC PO PRN (21:00)
[2021-01-24] MEDS ORDERED: DOCUSATE SODIUM 100MG CAPSULE PO PRN (21:00)
[2021-01-24] MEDS ORDERED: MORPHINE SULFATE 2 MG/ML CPJ (NOT FOR IM USE) IV PRN (21:00)
[2021-01-24] MEDS ORDERED: LORAZEPAM 2MG/ML CPJ IV PRN (21:00)
[2021-01-24] MEDS ORDERED: HYDROCODONE/ACETAMINOPHEN 5/325MG TABLET PO PRN (21:00)
[2021-01-24] MEDS ORDERED: IPRATROPIUM/ALBUTEROL 0.5-3(2.5)MG/3ML NEB HHN PRN (21:00)
[2021-01-24] MEDS ORDERED: CLONIDINE 0.1MG TABLET PO PRN (21:00)
[2021-01-24] MEDS ORDERED: ACETAMINOPHEN 325MG TABLET PO PRN (21:00)
[2021-01-24] MEDS ORDERED: DIPHENHYDRAMINE 50MG/ML VIAL IV PRN (21:00)
[2021-01-24] MEDS ORDERED: ONDANSETRON HCL 4MG/2ML INJ IV PRN (21:00)
[2021-01-24] MEDS ORDERED: MAGNESIUM/ALUMINUM HYDROXIDE/SIMETHICONE 30ML UDC PO PRN (21:00)
[2021-01-24] MEDS ORDERED: NALOXONE HCL 0.4MG/ML VIAL IV PRN (21:30)
[2021-01-24 22:00] VITALS: BP 112/52
[2021-01-24] MEDS: ENOXAPARIN 30MG/0.3ML SYR SUBCUT SCH (23:41)
[2021-01-24] MEDS: SODIUM CHLORIDE 0.9% INJ 3ML FLUSH IVF SCH (23:42)
[2021-01-25] VITALS (12 sets, daily range): BP systolic 105–149; BP diastolic 41–63
[2021-01-25 02:46] LABS: BASOPHILS % 0.8 % (0.0-2.0); EOSINOPHILS % 2.5 % (0.0-5.0); HEMATOCRIT. 25.4 % (36.0-48.0); HEMOGLOBIN. 8.8 g/dL (12.0-16.0); LYMPHOCYTES % 25.4 % (20.0-50.0); MEAN CORPUSCULAR HEMOGLOBIN 29.8 pg (28.0-32.0); MEAN CORPUSCULAR VOLUME 86.4 fL (81.0-99.0); MEAN PLATELET VOLUME 7.1 fl (7.4-10.4); MONOCYTES % 7.9 % (2.0-8.0); NEUTROPHILS % 63.4 % (40.0-76.0); PLATELET 285 x1000/uL (130-400); RED BLOOD CELL COUNT 2.95 mill/uL (4.2-5.4); RED CELL DISTRIBUTION WIDTH 15.2 % (11.6-14.6)
[2021-01-25 02:48] LABS: CHLORIDE 105 mEq/L (98-107)
[2021-01-25 02:56] LABS: CREATINE KINASE 49 IU/L (26-192)
[2021-01-25 02:59] LABS: CREATINE KINASE MB FRACTION < 1.0 ng/mL (0.5-3.6)
[2021-01-25] MEDS: SODIUM CHLORIDE 0.9% INJ 3ML FLUSH IVF SCH ×3 (06:45→21:36)
[2021-01-25] MEDS ORDERED: MEDICATION NOT ON FORMULARY EA (Ascorbic Acid (Vitamin C) 250 MG) PO SCH (16:15)
[2021-01-25] MEDS: AMLODIPINE 5MG TABLET PO SCH (17:09)
[2021-01-25] MEDS: ASPIRIN 81MG EC TABLET PO SCH (17:10)
[2021-01-25] MEDS: CALCIUM 1250MG TABLET (500MG ELEMENTAL CALCIUM) PO SCH (17:10)
[2021-01-25] MEDS: GABAPENTIN 100MG CAPSULE PO SCH (17:10)
[2021-01-25] MEDS: ASCORBIC ACID 250 MG TABLET PO SCH (17:10)
[2021-01-25 20:22] LABS: CLARITY URINE CLOUDY (CLEAR); COLOR URINE YELLOW (YELLOW); KETONES URINE NEGATIVE (NEGATIVE); LEUKOCYTE ESTERASE URINE 3+ (NEGATIVE); NITRITE URINE NEGATIVE (NEGATIVE); OCCULT BLOOD URINE 1+ (NEGATIVE); PH URINE >=9.0 (4.5-8.0); PROTEIN URINE 2+ (NEGATIVE); SPECIFIC GRAVITY URINE 1.008 (1.005-1.030); UROBILINOGEN URINE 0.2 E.U./dL (0.2-1.0)
[2021-01-25] MEDS: ENOXAPARIN 30MG/0.3ML SYR SUBCUT SCH (21:35)
[2021-01-25] MEDS: BRIMONIDINE 0.2% OPHTH DROPS 5ML BOTHEYE SCH (21:35)
[2021-01-26] VITALS (12 sets, daily range): BP systolic 106–128; BP diastolic 45–72
[2021-01-26] MEDS: SODIUM CHLORIDE 0.9% INJ 3ML FLUSH IVF SCH ×3 (04:33→21:36)
[2021-01-26] MEDS ORDERED: LEVOFLOXACIN 500MG PREMIX 100 ML IV SCH (10:00)
[2021-01-26] MEDS: ASPIRIN 81MG EC TABLET PO SCH (10:03)
[2021-01-26] MEDS: GABAPENTIN 100MG CAPSULE PO SCH (10:03)
[2021-01-26] MEDS: ASCORBIC ACID 250 MG TABLET PO SCH (10:03)
[2021-01-26] MEDS: CALCIUM 1250MG TABLET (500MG ELEMENTAL CALCIUM) PO SCH ×2 (10:03→17:47)
[2021-01-26] MEDS: BRIMONIDINE 0.2% OPHTH DROPS 5ML BOTHEYE SCH ×3 (10:03→21:36)
[2021-01-26] MEDS: AMLODIPINE 5MG TABLET PO SCH ×2 (10:03→21:00)
[2021-01-26] MEDS: ENOXAPARIN 30MG/0.3ML SYR SUBCUT SCH ×2 (21:00→21:36)
[2021-01-26 23:48] LABS: HEPATITIS B SURFACE ANTIGEN NEGATIVE
[2021-01-27] VITALS (8 sets, daily range): BP systolic 112–159; BP diastolic 52–82
[2021-01-27] MEDS: SODIUM CHLORIDE 0.9% INJ 3ML FLUSH IVF SCH ×2 (06:00→14:23)
[2021-01-27] MEDS: ASPIRIN 81MG EC TABLET PO SCH (09:41)
[2021-01-27] MEDS: GABAPENTIN 100MG CAPSULE PO SCH (09:41)
[2021-01-27] MEDS: CALCIUM 1250MG TABLET (500MG ELEMENTAL CALCIUM) PO SCH (09:41)
[2021-01-27] MEDS: ASCORBIC ACID 250 MG TABLET PO SCH (09:41)
[2021-01-27] MEDS: AMLODIPINE 5MG TABLET PO SCH (09:41)
[2021-01-27] MEDS ORDERED: EPOETIN ALFA-EPBX 4,000 UNIT/ML VIAL SUBCUT NR (21:00)
[2021-01-28] MEDS ORDERED: LEVOFLOXACIN 250MG PREMIX 50 ML IV SCH (10:00)
== END 2021-01-27 16:46 | disposition home health service (06) | DRG 640 ==
LOC: ER 11:53 → 3WST 15:28 → EDBEDREQ 15:33 → EDBEDREQSVC 15:33 → ENRESERV 16:33 → ER 17:29 → ENRESERV 17:45
PROVIDERS: ADMIT Internal Medicine; ATTEND Internal Medicine
PROC: 5A1D70Z Performance of Urinary Filtration, Intermittent, Less than 6 Hours Per Day (ICD-10-PCS; principal; 2021-01-26)
DX: E87.5 Hyperkalemia (principal); N18.6 End stage renal disease; E46 Unspecified protein-calorie malnutrition; I42.9 Cardiomyopathy, unspecified; I12.0 Hypertensive chronic kidney disease with stage 5 chronic kidney disease or end stage renal disease; D63.8 Anemia in other chronic diseases classified elsewhere; E78.5 Hyperlipidemia, unspecified; E11.51 Type 2 diabetes mellitus with diabetic peripheral angiopathy without gangrene; M85.80 Other specified disorders of bone density and structure, unspecified site; E11.22 Type 2 diabetes mellitus with diabetic chronic kidney disease; R00.1 Bradycardia, unspecified; I16.0 Hypertensive urgency; H54.3 Unqualified visual loss, both eyes; R07.89 Other chest pain; K46.9 Unspecified abdominal hernia without obstruction or gangrene; I25.10 Atherosclerotic heart disease of native coronary artery without angina pectoris; K42.9 Umbilical hernia without obstruction or gangrene; Z89.611 Acquired absence of right leg above knee; Z99.2 Dependence on renal dialysis; Z87.440 Personal history of urinary (tract) infections; Z87.81 Personal history of (healed) traumatic fracture; Z88.2 Allergy status to sulfonamides; Z91.041 Radiographic dye allergy status; Z79.82 Long term (current) use of aspirin; Z79.899 Other long term (current) drug therapy; Z68.26 Body mass index [BMI] 26.0-26.9, adult; H40.9 Unspecified glaucoma
CPT/HCPCS: 36415; 71045; 80048; 80053; 81003; 82550; 82553; 82962; 84443; 84484; 85025; 86705; 86709; 86803; 87340; 93005; 93970; 99291; A6261; J1650; J1815; J1956; J3490

== ENCOUNTER 2021-06-13 20:45 | Inpatient (IN) | payer MEDICARE, MEDICAID ==
[~2021-06-13] VITALS: Ht 167.6 cm; Wt 88.7 kg
[~2021-06-13 20:45] MED LIST changes: -AMLO5TAB4 PO; -ATOR20TA65 PO
[2021-06-13] MEDS ORDERED: SODIUM CHLORIDE 0.9% 500 ML IV ONE (21:45)
[2021-06-13 21:55] LABS: HEMATOCRIT. 24.7 % (36.0-48.0); HEMOGLOBIN. 8.3 g/dL (12.0-16.0); MEAN CORPUSCULAR VOLUME 80.6 fL (81.0-99.0); PLATELET 258 x1000/uL (130-400); RED BLOOD CELL COUNT 3.07 mill/uL (4.2-5.4); RED CELL DISTRIBUTION WIDTH 15.8 % (11.6-14.6)
[2021-06-13 21:57] LABS: CHLORIDE 100 mEq/L (98-107)
[2021-06-13 22:57] LABS: CLARITY URINE TURBID (CLEAR); COLOR URINE YELLOW (YELLOW); KETONES URINE NEGATIVE (NEGATIVE); LEUKOCYTE ESTERASE URINE 3+ (NEGATIVE); NITRITE URINE NEGATIVE (NEGATIVE); OCCULT BLOOD URINE 2+ (NEGATIVE); PROTEIN URINE 2+ (NEGATIVE)
[2021-06-13 23:15] LABS: PLATELET ESTIMATE NORMAL
[2021-06-13] MEDS ORDERED: VANCOMYCIN 1GM PMX (XELLIA) 200 ML IV NR (23:30)
[2021-06-13] MEDS ORDERED: PIPERACILLIN/TAZ 3.375G PREMIX 50 ML IV NR (23:30)
[2021-06-14] VITALS (9 sets, daily range): BP systolic 85–153; BP diastolic 41–61
[2021-06-14] MEDS ORDERED: ONDANSETRON HCL 4MG/2ML INJ IV PRN (08:45)
[2021-06-14] MEDS ORDERED: ACETAMINOPHEN 325MG TABLET PO PRN (08:45)
[2021-06-14] MEDS: PIPERACILLIN/TAZOBACTAM 3.375 G in DEXTROSE 5% WATER 50 ML IV SCH ×2 (11:55→21:10)
[2021-06-14] MEDS ORDERED: HYDR-4134 PO (13:27)
[2021-06-14] MEDS ORDERED: FURO20TA4 MT (13:29)
[2021-06-14] MEDS ORDERED: SODIUM CHLORIDE 0.9% 1000ML BAG (SEPSIS BOLUS) IV SCH (13:45)
[2021-06-14] MEDS: POTASSIUM CHLORIDE INJ 10 MEQ in SODIUM CHLORIDE 0.9% 1,000 ML IV SCH (16:49)
[2021-06-14] MEDS: CLOTRIMAZOLE 1% VAGINAL CREAM 45GM VG SCH (23:21)
[2021-06-15] VITALS (12 sets, daily range): BP systolic 99–144; BP diastolic 32–90
[2021-06-15 07:23] LABS: BASOPHILS % 0.2 % (0.0-2.0); EOSINOPHILS % 0.1 % (0.0-5.0); HEMATOCRIT. 23.3 % (36.0-48.0); HEMOGLOBIN. 7.4 g/dL (12.0-16.0); LYMPHOCYTES % 8.3 % (20.0-50.0); MEAN CORPUSCULAR HEMOGLOBIN 26.4 pg (28.0-32.0); MEAN CORPUSCULAR VOLUME 82.5 fL (81.0-99.0); MEAN PLATELET VOLUME 7.1 fl (7.4-10.4); MONOCYTES % 4.8 % (2.0-8.0); NEUTROPHILS % 86.6 % (40.0-76.0); PLATELET 266 x1000/uL (130-400); RED BLOOD CELL COUNT 2.82 mill/uL (4.2-5.4); RED CELL DISTRIBUTION WIDTH 16.3 % (11.6-14.6)
[2021-06-15] MEDS ORDERED: DEXT 5% WATER + KCL 40MEQ/L 1,000 ML IV ONE (08:00)
[2021-06-15] MEDS: KCL 20MEQ/100ML X 2 FOR TOTAL KCL 40MEQ/200ML IV SCH ×2 (08:35→10:39)
[2021-06-15] MEDS: PIPERACILLIN/TAZOBACTAM 3.375 G in DEXTROSE 5% WATER 50 ML IV SCH ×2 (08:40→20:50)
[2021-06-15] MEDS: FOLIC ACID/VITAMIN B COMP W-C TABLET PO SCH (08:40)
[2021-06-15] MEDS: POTASSIUM CHLORIDE INJ 10 MEQ in SODIUM CHLORIDE 0.9% 1,000 ML IV SCH (12:18)
[2021-06-15] MEDS: TRAMADOL 50MG TABLET PO PRN (17:19)
[2021-06-15] MEDS: CLOTRIMAZOLE 1% VAGINAL CREAM 45GM VG SCH (20:59)
[2021-06-16] VITALS (12 sets, daily range): BP systolic 108–152; BP diastolic 32–54
[2021-06-16] MEDS: FOLIC ACID/VITAMIN B COMP W-C TABLET PO SCH (08:29)
[2021-06-16] MEDS: POTASSIUM CHLORIDE INJ 10 MEQ in SODIUM CHLORIDE 0.9% 1,000 ML IV SCH (08:30)
[2021-06-16] MEDS: PIPERACILLIN/TAZOBACTAM 3.375 G in DEXTROSE 5% WATER 50 ML IV SCH ×2 (08:31→21:29)
[2021-06-16 13:32] LABS: HEMATOCRIT. 23.6 % (36.0-48.0); HEMOGLOBIN. 7.6 g/dL (12.0-16.0); MEAN CORPUSCULAR HEMOGLOBIN 26.4 pg (28.0-32.0); MEAN CORPUSCULAR VOLUME 82.3 fL (81.0-99.0); MEAN PLATELET VOLUME 6.6 fl (7.4-10.4); PLATELET 256 x1000/uL (130-400); RED BLOOD CELL COUNT 2.87 mill/uL (4.2-5.4); RED CELL DISTRIBUTION WIDTH 16.4 % (11.6-14.6)
[2021-06-16 14:18] LABS: HEPATITIS B SURFACE ANTIGEN NEGATIVE
[2021-06-16 14:25] LABS: PLATELET ESTIMATE NORMAL
[2021-06-16] MEDS: EPOETIN ALFA 4000UNITS/ML VIAL SUBCUT NR ×2 (21:30→23:57)
[2021-06-16] MEDS: CLOTRIMAZOLE 1% VAGINAL CREAM 45GM VG SCH (21:30)
[2021-06-16] MEDS: IRON SUCROSE COMPLEX 100 MG/5 ML ML IV SCH (23:57)
[2021-06-17] VITALS (8 sets, daily range): BP systolic 94–143; BP diastolic 50–77
[2021-06-17 07:59] LABS: HEMATOCRIT. 25.5 % (36.0-48.0); HEMOGLOBIN. 8.3 g/dL (12.0-16.0); MEAN CORPUSCULAR HEMOGLOBIN 27.3 pg (28.0-32.0); MEAN CORPUSCULAR VOLUME 83.5 fL (81.0-99.0); MEAN PLATELET VOLUME 6.8 fl (7.4-10.4); PLATELET 252 x1000/uL (130-400); RED BLOOD CELL COUNT 3.06 mill/uL (4.2-5.4); RED CELL DISTRIBUTION WIDTH 16.5 % (11.6-14.6)
[2021-06-17] MEDS: POTASSIUM CHLORIDE INJ 10 MEQ in SODIUM CHLORIDE 0.9% 1,000 ML IV SCH ×2 (08:25→23:50)
[2021-06-17] MEDS: PIPERACILLIN/TAZOBACTAM 3.375 G in DEXTROSE 5% WATER 50 ML IV SCH ×2 (08:25→21:48)
[2021-06-17] MEDS: ZINC SULFATE 220 MG ( 50 ) CAPSULE PO SCH (08:36)
[2021-06-17] MEDS: ASCORBIC ACID 500 MG TABLET PO SCH (08:36)
[2021-06-17] MEDS: FOLIC ACID/VITAMIN B COMP W-C TABLET PO SCH (08:36)
[2021-06-17] MEDS ORDERED: NALOXONE HCL 0.4MG/ML VIAL IV PRN (11:15)
[2021-06-17 12:51] LABS: PLATELET ESTIMATE NORMAL
[2021-06-17] MEDS ORDERED: POTASSIUM CHLORIDE INJ 20 MEQ in DEXT 5% WATER 250 ML IV ONE (13:00)
[2021-06-17] MEDS ORDERED: VANCOMYCIN 1500MG in DEXTROSE 5% WATER 250ML IV NR (13:00)
[2021-06-17] MEDS: TRAMADOL 50MG TABLET PO PRN (18:54)
[2021-06-17] MEDS: CLOTRIMAZOLE 1% VAGINAL CREAM 45GM VG SCH (21:48)
[2021-06-17] MEDS: IRON SUCROSE COMPLEX 100 MG/5 ML ML IV SCH (21:49)
[2021-06-18] VITALS: BP 155/56
[2021-06-18 04:00] VITALS: BP 137/51
[2021-06-18 08:00] VITALS: BP 112/46
[2021-06-18] MEDS ORDERED: LIDOCAINE HCL 1% 10 MG/ML 10ML VIAL ONE (08:47)
[2021-06-18] MEDS: FOLIC ACID/VITAMIN B COMP W-C TABLET PO SCH (09:06)
[2021-06-18] MEDS: ASCORBIC ACID 500 MG TABLET PO SCH (09:06)
[2021-06-18] MEDS: PIPERACILLIN/TAZOBACTAM 3.375 G in DEXTROSE 5% WATER 50 ML IV SCH ×2 (09:06→20:59)
[2021-06-18] MEDS: ZINC SULFATE 220 MG ( 50 ) CAPSULE PO SCH (09:06)
[2021-06-18 12:00] VITALS: BP 84/49
[2021-06-18 16:00] VITALS: BP 140/52
[2021-06-18 20:00] VITALS: BP 150/57
[2021-06-18] MEDS: CLOTRIMAZOLE 1% VAGINAL CREAM 45GM VG SCH (20:59)
[2021-06-18] MEDS ORDERED: EPOETIN ALFA 4000UNITS/ML VIAL SUBCUT SCH (21:00)
[2021-06-18] MEDS: POTASSIUM CHLORIDE INJ 10 MEQ in SODIUM CHLORIDE 0.9% 1,000 ML IV SCH (21:00)
[2021-06-18] MEDS: IRON SUCROSE COMPLEX 100 MG/5 ML ML IV SCH (21:39)
[2021-06-19] VITALS (7 sets, daily range): BP systolic 119–160; BP diastolic 41–66
[2021-06-19] MEDS: ASCORBIC ACID 500 MG TABLET PO SCH (09:27)
[2021-06-19] MEDS: ZINC SULFATE 220 MG ( 50 ) CAPSULE PO SCH (09:27)
[2021-06-19] MEDS: PIPERACILLIN/TAZOBACTAM 3.375 G in DEXTROSE 5% WATER 50 ML IV SCH (09:27)
[2021-06-19] MEDS: FOLIC ACID/VITAMIN B COMP W-C TABLET PO SCH (09:27)
[2021-06-19 10:18] LABS: HEMATOCRIT. 25.6 % (36.0-48.0); HEMOGLOBIN. 8.2 g/dL (12.0-16.0); MEAN CORPUSCULAR HEMOGLOBIN 26.5 pg (28.0-32.0); MEAN CORPUSCULAR VOLUME 82.9 fL (81.0-99.0); MEAN PLATELET VOLUME 6.8 fl (7.4-10.4); PLATELET 290 x1000/uL (130-400); RED BLOOD CELL COUNT 3.09 mill/uL (4.2-5.4); RED CELL DISTRIBUTION WIDTH 16.8 % (11.6-14.6)
[2021-06-19 10:41] LABS: T4 FREE 0.99 ng/dL (0.76-1.46)
[2021-06-19 10:58] LABS: FOLIC ACID (FOLATE) SERUM 14.4 ng/mL (>5.38)
[2021-06-19] MEDS ORDERED: COLISTIN XX SCH (11:00)
[2021-06-19 11:24] LABS: PLATELET ESTIMATE NORMAL
[2021-06-19] MEDS ORDERED: COLISTIMETHATE SODIUM 300 MG in SODIUM CHLORIDE 0.9% 100 ML IV NR (11:30)
[2021-06-19] MEDS: TRAMADOL 50MG TABLET PO PRN (12:53)
[2021-06-19] MEDS ORDERED: POTASSIUM CHLORIDE INJ 40 MEQ in DEXT 5% WATER 250 ML IV NR (13:00)
[2021-06-19 14:31] LABS: CORTISOL 17.4 ucg/dL
[2021-06-19] MEDS: POTASSIUM CHLORIDE INJ 10 MEQ in SODIUM CHLORIDE 0.9% 1,000 ML IV SCH (17:42)
[2021-06-19] MEDS: CLOTRIMAZOLE 1% VAGINAL CREAM 45GM VG SCH (21:19)
[2021-06-19] MEDS: CYANOCOBALAMIN 1000MCG/ML VIAL IM SCH (22:15)
[2021-06-20 04:00] VITALS: BP 150/60
[2021-06-20 08:00] VITALS: BP 157/55
[2021-06-20 12:00] VITALS: BP 132/92
[2021-06-20] MEDS: POTASSIUM CHLORIDE INJ 10 MEQ in SODIUM CHLORIDE 0.9% 1,000 ML IV SCH (12:42)
[2021-06-20] MEDS ORDERED: LIDOCAINE HCL/EPINEPHRINE 1%-EPI 1:100,000 20 ML VIAL INFIL NR (13:00)
[2021-06-20] MEDS ORDERED: LIDOCAINE HCL 2% JELLY 5ML TOP NR (13:00)
[2021-06-20] MEDS: FOLIC ACID/VITAMIN B COMP W-C TABLET PO SCH (14:46)
[2021-06-20] MEDS: ZINC SULFATE 220 MG ( 50 ) CAPSULE PO SCH (14:46)
[2021-06-20] MEDS: CYANOCOBALAMIN 1000MCG/ML VIAL IM SCH (14:46)
[2021-06-20] MEDS: ASCORBIC ACID 500 MG TABLET PO SCH (14:46)
[2021-06-20 15:30] VITALS: BP 136/90
[2021-06-20 20:00] VITALS: BP 115/47
[2021-06-20] MEDS ORDERED: COLISTIMETHATE SODIUM IV SCH (21:00)
[2021-06-20] MEDS ORDERED: SODIUM CHLORIDE 0.9% IV SCH (21:00)
[2021-06-20] MEDS: CLOTRIMAZOLE 1% VAGINAL CREAM 45GM VG SCH (21:47)
[2021-06-20 23:39] VITALS: BP 141/54
[2021-06-21 04:02] VITALS: BP 97/54
[2021-06-21 08:00] VITALS: BP 110/39
[2021-06-21] MEDS: FOLIC ACID/VITAMIN B COMP W-C TABLET PO SCH (09:32)
[2021-06-21] MEDS: ASCORBIC ACID 500 MG TABLET PO SCH (09:32)
[2021-06-21] MEDS: ZINC SULFATE 220 MG ( 50 ) CAPSULE PO SCH (09:32)
[2021-06-21] MEDS: CYANOCOBALAMIN 1000MCG/ML VIAL IM SCH (09:32)
[2021-06-21] MEDS: POTASSIUM CHLORIDE INJ 10 MEQ in SODIUM CHLORIDE 0.9% 1,000 ML IV SCH (09:33)
[2021-06-21] MEDS: SODIUM HYPOCHLORITE 0.125% 473ML SOLUTION TOP SCH ×2 (09:34→17:48)
[2021-06-21 12:00] VITALS: BP 122/69
[2021-06-21 16:22] VITALS: BP 138/58
[2021-06-21 20:00] VITALS: BP 135/59
[2021-06-21 20:49] VITALS: BP 135/59
== END 2021-06-21 22:25 | disposition short-term general hospital (02) | DRG 853 ==
LOC: ER 20:45 → MICUSO 06-14 03:25 → ENRESERV 06-14 04:25 → 5EST 06-14 05:18 → 6WST 06-21 15:39
PROVIDERS: ADMIT Internal Medicine; ATTEND Internal Medicine
PROC: 5A1D70Z Performance of Urinary Filtration, Intermittent, Less than 6 Hours Per Day (ICD-10-PCS; 2021-06-17)
PROC: 0KBP0ZZ Excision of Left Hip Muscle, Open Approach (ICD-10-PCS; principal; 2021-06-20)
PROC: 5A1D70Z Performance of Urinary Filtration, Intermittent, Less than 6 Hours Per Day (ICD-10-PCS; 2021-06-20)
PROC: 02HV33Z Insertion of Infusion Device into Superior Vena Cava, Percutaneous Approach (ICD-10-PCS; 2021-06-20)
PROC: B548ZZA Ultrasonography of Superior Vena Cava, Guidance (ICD-10-PCS; 2021-06-20)
DX: A41.9 Sepsis, unspecified organism (principal); L89.324 Pressure ulcer of left buttock, stage 4; J18.9 Pneumonia, unspecified organism; E43 Unspecified severe protein-calorie malnutrition; N18.6 End stage renal disease; R65.21 Severe sepsis with septic shock; E87.1 Hypo-osmolality and hyponatremia; I12.0 Hypertensive chronic kidney disease with stage 5 chronic kidney disease or end stage renal disease; N39.0 Urinary tract infection, site not specified; J44.0 Chronic obstructive pulmonary disease with (acute) lower respiratory infection; Z99.2 Dependence on renal dialysis; D64.9 Anemia, unspecified; E87.6 Hypokalemia; E11.22 Type 2 diabetes mellitus with diabetic chronic kidney disease; B96.1 Klebsiella pneumoniae [K. pneumoniae] as the cause of diseases classified elsewhere; E04.1 Nontoxic single thyroid nodule; Z96.642 Presence of left artificial hip joint; E53.8 Deficiency of other specified B group vitamins; H40.9 Unspecified glaucoma; Z96.653 Presence of artificial knee joint, bilateral; I25.10 Atherosclerotic heart disease of native coronary artery without angina pectoris; M51.36 Other intervertebral disc degeneration, lumbar region; B96.20 Unspecified Escherichia coli [E. coli] as the cause of diseases classified elsewhere; I71.4 Abdominal aortic aneurysm, without rupture; K46.9 Unspecified abdominal hernia without obstruction or gangrene; M47.816 Spondylosis without myelopathy or radiculopathy, lumbar region; Z20.822 Contact with and (suspected) exposure to COVID-19; L89.159 Pressure ulcer of sacral region, unspecified stage; M85.80 Other specified disorders of bone density and structure, unspecified site; Z83.3 Family history of diabetes mellitus; Z87.891 Personal history of nicotine dependence; Z89.611 Acquired absence of right leg above knee; Z90.710 Acquired absence of both cervix and uterus; Z98.41 Cataract extraction status, right eye; Z88.2 Allergy status to sulfonamides; Z91.041 Radiographic dye allergy status; Z79.899 Other long term (current) drug therapy; Z79.82 Long term (current) use of aspirin; Z87.440 Personal history of urinary (tract) infections; Z68.31 Body mass index [BMI] 31.0-31.9, adult; R19.7 Diarrhea, unspecified
CPT/HCPCS: 36415; 71045; 71046; 74018; 74176; 76937; 80048; 80053; 80202; 81003; 82040; 82533; 82607; 82746; 83605; 84134; 84145; 84439; 84443; 84484; 85025; 86705; 86709; 86803; 87015; 87045; 87077; 87186; 87340; 87426; 87427; 87449; 87493; 93005; 97162; 99291; C1725; J0770; J0885; J2405; J2543; J3370; J3420; J3480; J3490; J7030; J7040; J7050; J7060